=== PATIENT | male | born 1945 | race Caucasian/White ===

== ENCOUNTER 2022-02-14 15:12 | Emergency (ER) | payer MEDICARE, SELFPAY ==
--- NOTE | 2022-02-14 15:17 | ED.URI ---
HPI - URI/Sore Throat General Chief Complaint: Upper Respiratory Infection Stated Complaint: Cough, Mucus Time Seen by Provider: 02/14/22 15:30 Source: patient Mode of arrival: ambulatory Limitations: no limitations History of Present Illness HPI Narrative: Mr. Daniels is a 76-year-old male patient presenting to the clinic today with complaints of cough and congestion x4 weeks. He reports he has yellow nasal drainage and productive cough with yellow phlegm. No fever or chills. He reports that he has a lot of postnasal drip that is keeping him awake at night. MD elicited complaint: cough and nasal congestion Related Data Home Medications Medication Instructions Recorded Confirmed Diclofex DC 02/14/22 Zetia 02/14/22 diltiazem HCl 02/14/22 Allergies Allergy/AdvReac Type Severity Reaction Status Date / Time erythromycin base Allergy Unknown Verified 02/14/22 15:25 Review of Systems Review of Systems: Pertinent positives per HPI. Patient denies any fever, chills, rash, headache, visual changes, dizziness, shortness of breath, chest pain, palpitations, nausea, vomiting, diarrhea, constipation, abdominal pain, or any urinary issues. PMFSH Comments At the time of my signature, I reviewed and agree with the nursing past medical, surgical, social, and family history. There is no relevant family history pertinent to the patient complaint. Exam Narrative: General: Well-developed, well nourished, in no apparent distress Head: Normocephalic, atraumatic Eyes: Pupils equally round and reactive to light bilaterally, EOM intact, sclera and conjunctive clear, no discharge, lids normal Ears: TMs intact and clear, ear canals clear, no drainage, grossly hearing normal. Nose: Nares patent, yellow nasal discharge, moderate inflammation to anterior and posterior turbinates with white striae, sinus tenderness over the maxillary and frontal sinuses. Mouth: Oral pharynx without lesions or masses, good dentition, MMM. Postnasal drip Neck: Supple, trachea midline, no enlargement of anterior or posterior cervical nodes, no thyroid masses or goiter palpable. Cardio: Regular rate and rhythm, s1 and s2 normal, no murmur appreciated. Resp: Clear to auscultation bilaterally, no rhonchi, rales, wheezing or rubs Course Course Emergency Course: Portions of this record may have been created with voice recognition software. Level of Care: Express Care Visit Vital Signs Vital signs: Vital signs reviewed MDM - URI/Sore Throat MDM Narrative Medical decision making narrative: At the time of assessment lung sounds were clear. Does have yellow nasal drainage, sinus tenderness over the maxillary and frontal sinuses, with a postnasal drip. I suspect a bacterial sinus infection as symptoms have been ongoing for 4 weeks. We will treat with a course of Augmentin x10 days. Differential Diagnosis Differential diagnosis: Likely upper respiratory infection, otitis media, sinusitis, viral infection, bronchitis, influenza, pharyngitis and other (Pneumonia) Discharge Plan Discharge Clinical Impression: Sinusitis, acute maxillary Qualifiers: Recurrence: non-recurrent Qualified Code(s): J01.00 - Acute maxillary sinusitis, unspecified Patient Disposition: Home, Self-Care Condition: Stable Instructions: Antibiotic Form, Rhinosinusitis (ED) Additional Instructions: Take prescription medications only as prescribed Augmentin as directed Increase fluids and stay well hydrated Tylenol/motrin for pain/fever Flonase and OTC antihistamines as directed Vicks vapor rub to open sinuses Sinus rinses for congestion Cepacol spray, cough drops, throat lozenges, warm tea with honey/lemon, gargle salt water to soothe throat Go to the ED if you develop dehydration, weakness, lethargy, shortness of breath, or chest pain. Follow up with your PCP in 3-5 days if symptoms persist. Prescriptions: New amoxicillin-pot clavulanate 875-125 mg tab
[2022-02-14 15:25] VITALS: BP 150/67; PULSE 86; RESP 16; TEMP 36.9; O2SAT 99
[2022-02-14 15:26] VITALS: BP 150/67; PULSE 86; RESP 16; TEMP 36.9; O2SAT 99
== END 2022-02-14 15:36 | disposition home or self-care (01) ==
PROVIDERS: Emergency Provider Nurse Practitioner Family; PCP Family Medicine
DX: J01.00 Acute maxillary sinusitis, unspecified (principal); Z95.5 Presence of coronary angioplasty implant and graft
CPT/HCPCS: 99213; G0463

== ENCOUNTER 2022-08-27 14:14 | Emergency (ER) | payer MEDICARE, SELFPAY ==
[2022-08-27 14:28] VITALS: BP 149/80; PULSE 80; RESP 16; TEMP 36.8; O2SAT 99
[2022-08-27 14:30] VITALS: BP 149/80; PULSE 80; RESP 16; TEMP 36.8; O2SAT 99
--- NOTE | 2022-08-27 14:34 | ED.BACK ---
HPI - Back Pain/Injury General Chief Complaint: Back Pain/Injury Stated Complaint: SCIATICA Time Seen by Provider: 08/27/22 14:35 Source: patient, RN notes reviewed and old records reviewed Mode of arrival: ambulatory Limitations: no limitations History of Present Illness HPI Narrative: 76-year-old male presents to the [facility] with complaints of my sciatica is acting up. Patient takes Flexeril on a regular basis. States the muscle relaxer is not helping him. Sometimes has to get steroid packs. Walks with a walker, states it is his normal. Denies any abdominal pain. No loss or retention of bowel or bladder. No midline tenderness. Has an appointment with Ortho on Wednesday Onset (ago): week(s) (1 week) Similar Symptoms Previously: Yes Location: right lower back Radiation: right upper leg Exacerbating factors: movement Related Data Home Medications Medication Instructions Recorded Confirmed cyclosporine 0.05 % eye drops in a 1 drp EACH EYE BID 08/27/22 08/27/22 dropperette (Restasis) diclofenac sodium 50 mg 50 mg PO BID 08/27/22 08/27/22 tablet,delayed release diltiazem HCl 120 mg 120 mg PO DAILY 08/27/22 08/27/22 capsule,extended release 24 hr ezetimibe 10 mg tablet (Zetia) 10 mg PO DAILY 08/27/22 08/27/22 pravastatin 80 mg tablet 80 mg PO DAILY 08/27/22 08/27/22 Allergies Allergy/AdvReac Type Severity Reaction Status Date / Time erythromycin base Allergy Unknown Verified 08/27/22 14:28 Review of Systems Review of Systems: All systems reviewed & are unremarkable except as noted in HPI and below Constitutional: Constitutional: Reports no additional constitutional complaints, Denies chills and Denies fever(s) Eyes: Eyes: Reports no additional eye complaints ENT: Reports system reviewed and no additional complaints, except as documented Cardiovascular: Cardiovascular: Reports no additional cardiovascular complaints Respiratory: Respiratory: Reports no additional respiratory complaints Gastrointestinal: Gastrointestinal: Reports no additional gastrointestinal complaints Musculoskeletal: Musculoskeletal: Reports as per HPI and Reports back pain (Right SI) Integumentary/Breasts: Skin/Breast: Reports system reviewed and no additional complaints, except as docu Neurologic: Reports system reviewed and no additional complaints, except as documented Psychiatric: Psychiatric: Reports no additional psychiatric complaints Allergic/Immunologic: Allergic/Immunologic: Reports no additional allergic/immunologic complaints [facility] Past Medical History Medical History (Updated 08/27/22 @ 17:41 by Jade Beal APRN) High cholesterol Comments At the time of my signature, I reviewed and agree with the nursing past medical, surgical, social, and family history. There is no relevant family history pertinent to the patient complaint. Exam Const: General: healthy appearing, no acute distress and alert Nutritional Appearance: well nourished Orientation/consciousness: patient oriented x3 Limitations: no limitations HENMT: Head: normal to inspection Ears: external ears normal General nose exam: Normal external nose present Face and sinus: normal facial exam Eyes: General: appearance normal, both eyes and all related structures Pupils: Equal, round and reactive pupils present Neck: Neck: normal visual inspection, no lymphadenopathy and no meningeal signs Chest: Chest palpation & inspection: normal inspection of the chest Resp: Effort & Inspection: normal respiratory effort and no use of accessory muscles Auscultation: clear to auscultation bilaterally, no crackles, no rales, no rhonchi and no wheezes Cardio: Rate: regular rate Rhythm: regular rhythm GI: GI Palp: Yes Soft to palpation and No Tenderness to palpation present (GI) Back/Spine/Pelvis: Back: no CVA tenderness, No erythema, No warmth, No sacral edema and No ecchymosis Cervical Spine: normal cervical lordosis, No cervical muscular tenderne
== END 2022-08-27 14:50 | disposition home or self-care (01) ==
PROVIDERS: Emergency Provider Nurse Practitioner; PCP Family Medicine
DX: M54.31 Sciatica, right side (principal); E78.00 Pure hypercholesterolemia, unspecified
CPT/HCPCS: 99213; G0463

== ENCOUNTER 2023-09-21 13:46 | Outpatient (CLI) | payer MEDICARE, SELFPAY ==
[2023-09-21 19:03] LABS: Basophils Absolute Auto 0.1 K/mm3 (0.0-0.1); Basophils Percent Auto 1.1 % (0.2-1.2); Eosinophils Absolute Auto 0.1 K/mm3 (0-0.3); Eosinophils Percent Auto 1.8 % (0-4.4); Hematocrit 42.9 % (42.0-52.0); Hemoglobin 13.2 g/dL (14.0-18.0); Immature Granulocyte Absolute 0.01 K/mm3 (0.00-0.031); Immature Granulocyte Percent A 0.2 % (0-0.5); Lymphocytes Absolute Auto 0.83 K/mm3 (0.9-3.2); Lymphocytes Percent Auto 14.9 % (18.3-44.2); Mean Corpuscular HGB Conc 30.8 g/dl (32-36); Mean Corpuscular Hemoglobin 28.8 pg (26-34); Mean Corpuscular Volume 93.5 fl (80-100); Mean Platelet Volume 9.8 fl (7.4-10.4); Monocytes Absolute Auto 0.7 K/mm3 (0.1-0.6); Monocytes Percent Auto 12.2 % (2.6-8.5); Neutrophils Absolute Auto 3.9 K/mm3 (1.3-6.7); Neutrophils Percent Auto 69.8 % (45.5-73.1); Platelet Count Result 242 k/mm3 (150-375); Red Blood Count 4.59 M/mm3 (4.6-6.20); Red Cell Distribution Width 12.6 % (11.5-14.5); White Blood Count 5.6 K/mm3 (4.5-10.0)
[2023-09-21 19:24] LABS: Alanine Aminotransferase 29 U/L (6-50); Albumin Level 4.2 g/dL (3.5-5.1); Alkaline Phosphatase 69 U/L (38-126); Anion Gap 4 mmol/L (8-16); Aspartate Amino Transferase 39 U/L (17-59); Bilirubin,Total 0.4 mg/dL (0.2-1.3); Blood Urea Nitrogen 17 mg/dL (9-20); Calcium 9.5 mg/dL (8.4-10.2); Carbon Dioxide 31 mmol/L (22-30); Chloride 102 mmol/L (98-107); Estimated Glomerular Filt Rate > 60; Glucose 79 mg/dL (65-110); Potassium 4.4 mmol/L (3.4-5.0); Sodium 137 mmol/L (137-145)
== END 2023-09-21 13:47 | disposition home or self-care (01) ==
LOC: ANHGOSHLAB 13:48
PROVIDERS: PCP Internal Medicine; Visit Provider Clinical Nurse Specialist
DX: I25.10 Atherosclerotic heart disease of native coronary artery without angina pectoris (principal)
CPT/HCPCS: 36415; 80053; 85025

== ENCOUNTER 2023-11-10 08:38 | Outpatient (CLI) | payer MEDICARE, SELFPAY ==
[2023-11-10 12:55] LABS: CRP < 0.5 mg/dL (<1.0)
[2023-11-10 13:07] LABS: Rheumatoid Factor < 12.0 IU/ML (<12)
[2023-11-12 12:05] LABS: ANA Cascade Screen Negative (Negative)
== END 2023-11-10 08:39 | disposition home or self-care (01) ==
LOC: ANHGOSHLAB 08:40
PROVIDERS: PCP Internal Medicine; Visit Provider Clinical Nurse Specialist
DX: M79.10 Myalgia, unspecified site (principal)
CPT/HCPCS: 36415; 86038; 86140; 86225; 86235; 86364; 86430

== ENCOUNTER → 2023-11-10 08:53 | Outpatient (CLI) | payer MEDICARE, SELFPAY ==
--- NOTE | ~2023-11-10 | XR_ITS ---
EXAMINATION: [id number] DATE: 11/10/2023 09:28 INDICATION: Right foot pain. TECHNIQUE: 3 views of right foot standing were obtained. COMPARISON: None. FINDINGS: Bone alignment is normal. No fracture. There is severe osteoarthritis of first metatarsopha langeal joint and mild osteoarthritis of some of the interphalangeal joints. There is an enthesophyte at plantar aspect of calcaneal tuberosity. Vascular calcifications are noted. IMPRESSION: 1. Polyarticular osteoarthritis. Reviewed, dictated and finalized at location A. [facility]
== END ==
PROVIDERS: PCP Clinical Nurse Specialist; Visit Provider Clinical Nurse Specialist
DX: M19.071 Primary osteoarthritis, right ankle and foot (principal); M79.671 Pain in right foot
CPT/HCPCS: 73630

== ENCOUNTER 2024-08-14 14:45 | Outpatient (RCR) | payer MEDICARE, SELFPAY ==
--- NOTE | 2024-06-19 14:41 | OPREHPOC ---
Outpatient Therapy Plan of Care This is a Multidisciplinary Plan of Care that may contain components documented by all disciplines (PT, OT, and ST.) PT Problem 1 PT Problem #1 Knowledge Deficit PT Goal 1 Goal Pt to be IND with issued HEP Target Visit 10 PT Problem 2 PT Problem #2 Pain PT Goal 1 Goal Pt to report knee pain no greater then 3/10 in the last week. Target Visit 10 PT Problem 3 PT Problem #3 Impaired Range of Motion PT Goal 1 Goal Pt to improve passive knee extension to -3 deg teto . Target Visit 10 PT Goal 2 Goal Pt to improve passive knee flexion ROM to 115 deg teto. Target Visit 10 PT Problem 4 PT Problem #4 Impaired Strength PT Goal 1 Goal Pt to demonstrate a functional lift and carry with 20lb. Target Visit 10 PT Goal 2 Goal Pt to lack no more than 10 deg from terminal knee extension in short sitting.
--- NOTE | 2024-06-19 14:41 | PTOPEVAL1 ---
Assessment and note entered by Sanya Benavidez, PT, DPT Evaluation Information Assessment Status Evaluation Diagnosis L RKA ICD-10 Condition Codes (PT) Pain in left knee M25.562,Difficulty Walking R26.2 ,R26.9,Weakness R53.1 Subjective Information Pt reports he has a L RKA on 05/18/24. Pt completed 4 weeks of PT. He states he is doing well. Pt reports difficulty walking long distances and navigating stairs. He states he cannot sleep through the night because his knee becomes very stiff. He reports an increased time completing daily tasks. Prior to his surgery, pt enjoyed playing [employer]. Reported Pain Level Pain Score 2: Self Report Assessment PT Clinical Summary Alex presents to therapy today for his initial evaluation following a L TKA on 05/18/24. Today he demonstrates significantly decreased active and passive knee extension, he also is lacking end range knee flexion. He demonstrates decreased functional mobility and decreased strength and ROM consistent with his surgery. He will benefits from skilled therapy services to address the deficits noted above. Plan of Care Interventions Electrical Stimulation,Gait Training,Hot Pack/Cold Pack,Intermittent Compression,Manual Therapy, Neuro Re-education,Patient/Caregiver Educati, Therapeutic Activities,Therapeutic Exercise PT Services Indicated Yes Treatment Frequency and 2x/wk for 10 visits Duration These treatments will address the objective and functional deficits as defined above. The patient will be advanced safely and appropriately in order for the patient to progress towards his/her prior level of function. Additional exercises will be introduced and as well as a comprehensive home exercise program upon discharge, if needed, ?to ensure carryover of functional gains achieved in the clinic. This treatment plan has been reviewed and agreement upon by the patient.
--- NOTE | 2024-07-20 16:25 | PTOPPROG ---
Assessment and note entered by Sanya Benavidez, PT, DPT Evaluation Information Assessment Status Progress Diagnosis L RKA ICD-10 Condition Codes (PT) Pain in left knee M25.562,Difficulty Walking R26.2 ,R26.9,Weakness R53.1 Subjective Information Pt reports he has a L RKA on 05/18/24. Pt completed 4 weeks of PT. He states he is doing well. Pt reports difficulty walking long distances and navigating stairs. He states he cannot sleep through the night because his knee becomes very stiff. He reports an increased time completing daily tasks. Prior to his surgery, pt enjoyed playing [email or web address]. Assessment PT Clinical Summary Pt has completed 10 visits of skilled therapy following a L TKA. Today he demonstrates good strength and functional mobility, he reports stairs are the only thing he struggles with day to day. His ROM has improved but he continues to lack end range flexion and extension. He is progressing well towards his therapy goals. Continuation of skilled therapy services are indicated to continue to improve ROM, to improve stair navigation, and to return to PLOF including pickle ball. Plan of Care Interventions Electrical Stimulation,Gait Training,Hot Pack/Cold Pack,Intermittent Compression,Manual Therapy, Neuro Re-education,Patient/Caregiver Educati, Therapeutic Activities,Therapeutic Exercise PT Services Indicated Yes Treatment Frequency and 1x/wk for 4 visits Duration These treatments will address the objective and functional deficits as defined above. The patient will be advanced safely and appropriately in order for the patient to progress towards his/her prior level of function. Additional exercises will be introduced and as well as a comprehensive home exercise program upon discharge, if needed, ?to ensure carryover of functional gains achieved in the clinic. This treatment plan has been reviewed and agreement upon by the patient.
--- NOTE | 2024-07-25 15:23 | PCPTNOTE ---
Patient arrived to treatment this date but had to leave due to emergency. Patient was rescheduled for 07/26/24.
--- NOTE | 2024-08-14 15:25 | PTOPDC ---
Assessment and note entered by Sanya Benavidez, PT, DPT Evaluation Information Assessment Status dishcarge Diagnosis L RKA ICD-10 Condition Codes (PT) Pain in left knee M25.562,Difficulty Walking R26.2 ,R26.9,Weakness R53.1 Subjective Information Pt states his knee is doing great. He reports he has been stretching his knee daily and it feels like it has improved a lot. He reports an increase in low back popping since his knee surgery. Reported Pain Level Pain Score 0: Self Report Assessment PT Clinical Summary Pt has completed 15 visits of skilled therapy following a L TKA. Today he demonstrates great strength and functional mobility. His ROM has improved but he continues to lack end range flexion and extension. He has active flexion to 105 deg teto and is lacking ~5 deg of extension teto . Pt given extensive education on the importance of continued knee mobility upon discharge. He no longer requires skilled services and will be d/c' ed at this time. Plan of Care PT Services Indicated No
== END 2024-08-14 15:58 | disposition home or self-care (01) ==
LOC: ANHGOSHPT 14:45
PROVIDERS: PCP Clinical Nurse Specialist
DX: Z96.652 Presence of left artificial knee joint (principal)
CPT/HCPCS: 97016; 97110; 97140; 97161; 97530

== ENCOUNTER 2024-10-05 11:12 | Outpatient (CLI) | payer MEDICARE, SELFPAY ==
[2024-10-05 19:04] LABS: Basophils Absolute Auto 0.1 K/mm3 (0.0-0.1); Eosinophils Absolute Auto 0.1 K/mm3 (0-0.3); Eosinophils Percent Auto 2.7 % (0-4.4); Hematocrit 43.2 % (42.0-52.0); Immature Granulocyte Absolute 0.01 K/mm3 (0.00-0.031); Immature Granulocyte Percent A 0.2 % (0-0.5); Lymphocytes Absolute Auto 0.89 K/mm3 (0.9-3.2); Lymphocytes Percent Auto 18.5 % (18.3-44.2); Mean Corpuscular HGB Conc 30.1 g/dl (32-36); Mean Corpuscular Hemoglobin 25.6 pg (26-34); Mean Corpuscular Volume 85.2 fl (80-100); Monocytes Absolute Auto 0.6 K/mm3 (0.1-0.6); Monocytes Percent Auto 12.1 % (2.6-8.5); Neutrophils Absolute Auto 3.2 K/mm3 (1.3-6.7); Neutrophils Percent Auto 65.5 % (45.5-73.1); Platelet Count Result 234 k/mm3 (150-375); Red Blood Count 5.07 M/mm3 (4.6-6.20); Red Cell Distribution Width 14.9 % (11.5-14.5); White Blood Count 4.8 K/mm3 (4.5-10.0)
[2024-10-05 19:07] LABS: Alanine Aminotransferase 26 U/L (6-50); Albumin Level 4.2 g/dL (3.5-5.1); Alkaline Phosphatase 90 U/L (38-126); Anion Gap 9 mmol/L (4-12); Aspartate Amino Transferase 35 U/L (17-59); Bilirubin,Total 0.4 mg/dL (0.2-1.3); Blood Urea Nitrogen 16 mg/dL (9-20); Calcium 9.7 mg/dL (8.4-10.2); Carbon Dioxide 30 mmol/L (22-30); Chloride 102 mmol/L (98-107); Cholesterol 141 mg/dL (0-200); Estimated Glomerular Filt Rate > 60; Glucose 87 mg/dL (65-110); HDL Direct 51 mg/dL; Potassium 4.8 mmol/L (3.4-5.0); Sodium 141 mmol/L (137-145); Triglycerides 83 mg/dL (<150)
[2024-10-05 19:17] LABS: LDL Cholesterol Direct 71 mg/dL
[2024-10-05 20:11] LABS: Folic Acid > 20.0 ng/mL (2.76->20)
== END 2024-10-05 11:13 | disposition home or self-care (01) ==
LOC: ANHGOSHLAB 11:15
PROVIDERS: PCP Clinical Nurse Specialist; Visit Provider Clinical Nurse Specialist
DX: E78.5 Hyperlipidemia, unspecified (principal); I25.10 Atherosclerotic heart disease of native coronary artery without angina pectoris; M79.10 Myalgia, unspecified site; R53.83 Other fatigue; D64.9 Anemia, unspecified
CPT/HCPCS: 36415; 80053; 80061; 82607; 82746; 84402; 84403; 84443; 85025

== ENCOUNTER 2024-10-13 13:56 | Outpatient (CLI) | payer MEDICARE, SELFPAY ==
[2024-10-13 18:03] LABS: Basophils Absolute Auto 0.1 K/mm3 (0.0-0.1); Basophils Percent Auto 0.9 % (0.2-1.2); Eosinophils Absolute Auto 0.1 K/mm3 (0-0.3); Eosinophils Percent Auto 1.5 % (0-4.4); Hemoglobin 13.4 g/dL (14.0-18.0); Immature Granulocyte Absolute 0.01 K/mm3 (0.00-0.031); Immature Granulocyte Percent A 0.2 % (0-0.5); Lymphocytes Absolute Auto 0.96 K/mm3 (0.9-3.2); Lymphocytes Percent Auto 14.6 % (18.3-44.2); Mean Corpuscular HGB Conc 29.8 g/dl (32-36); Mean Corpuscular Hemoglobin 25.5 pg (26-34); Mean Corpuscular Volume 85.7 fl (80-100); Mean Platelet Volume 9.9 fl (7.4-10.4); Monocytes Absolute Auto 0.6 K/mm3 (0.1-0.6); Monocytes Percent Auto 9.1 % (2.6-8.5); Neutrophils Absolute Auto 4.9 K/mm3 (1.3-6.7); Neutrophils Percent Auto 73.7 % (45.5-73.1); Platelet Count Result 258 k/mm3 (150-375); Red Blood Count 5.25 M/mm3 (4.6-6.20); Red Cell Distribution Width 14.9 % (11.5-14.5); White Blood Count 6.6 K/mm3 (4.5-10.0)
[2024-10-13 18:30] LABS: Free T4 Free Thyroxine 0.81 ng/mL (0.78-2.19)
[2024-10-13 18:48] LABS: Ferritin 7.42 ng/mL (11.1-264)
== END 2024-10-13 13:57 | disposition home or self-care (01) ==
PROVIDERS: PCP Clinical Nurse Specialist; Visit Provider Clinical Nurse Specialist
DX: R53.83 Other fatigue (principal); D64.9 Anemia, unspecified; R79.89 Other specified abnormal findings of blood chemistry; Z12.11 Encounter for screening for malignant neoplasm of colon; Z12.12 Encounter for screening for malignant neoplasm of rectum
CPT/HCPCS: 36415; 82728; 84439; 84443; 85025

== ENCOUNTER 2024-12-27 03:23 | Day surgery (SDC) | payer MEDICARE, SELFPAY ==
[2024-12-14 15:11] VITALS: BMI 25.9
--- OUTSIDE RECORDS SUMMARY | 2024-12-27 03:27 | XMS_ITS | Encounter Summary ---
Author Organization [facility] Facility Care Team Providers Care Wine Merchant Name Role Phone Woody Wu MD Primary Care Provider [phone] Marquita Valentino LPN Unavailable [phone] Aj López MD Unavailable [phone] No, Physician Primary Care Provider [phone] oWody Fry DO Primary Care Provider [phone] Deidre Lomeli Unavailable [phone] Encounter Details Date Type Department Care Team (Latest Contact Info) Description 07/11/2018 Orders Only [facility] ProviderAyaz MD [address] [place] [id number] Social History Tobacco Use Types Packs/Day Years Used Date Smoking Tobacco: Never Smokeless Tobacco: Never Alcohol Use Standard Drinks/Week Comments Yes 0 (1 standard drink = 0.6 oz pur e alcohol) Sex and Gender Information Value Date Recorded Sex Assigned at Not on file Legal Sex Male 3:45 PM [employer] Gender Identity Not on file Sexual Orientation Not on file documented as of this encounter Plan of Treatment Not on file documented as of this encounter Procedures Procedure Name Priority Date/Time Associated Diagnosis Comments SCAN - LABS 07/11/2018 12:00 AM CDT documented in this encounter Results * SCAN - LABS (07/11/2018 12:00 AM CDT) Narrative 07/11/2018 12:00 AM CDT Ordered by an unspecified provider. us Historical Provider Final Res ult documented in this encounter Visit Diagnoses Not on filedocumented in this encounter Care Teams Wine Merchant Relationship Specialty Start Date End Date Woody Wu MD PCP - General 02/26/17 04/18/24 No, Physician PCP - General 04/20/24 05/01/24 Woody Fry DO PCP - General Internal Medicine 05/02/24 Marquita Valentino LPN Bus Analyst 11/01/19 11/01/19 Aj López MD [address] [facility] [address] [place] [address] Consulting Physician Interventional Cardiology 04/19/24 Deidre Lomeli PA [address] [facility] [address] [place] [address] [place] [id number] Orthopedic Surgery 05/18/24 documented as of this encounter
--- OUTSIDE RECORDS SUMMARY | 2024-12-27 03:27 | XMS_ITS | Patient Health Summary ---
Author Organization [facility] Address [address] [place] [address] Care Team Providers Care Auto Winder Name Role Phone Unavailable Primary Care Provider Unavailabl e Note from [facility],non-owned Affiliates and Associated Physician Practices is amultiple site organization consisting of ambulatory clinics and hospital sitesin [place], [place], [place] and [place]. This disclosure is being madepursuant to the Care Everywhere program and may not contain all information available regarding this patient. Last updated 18.[facility] Allergies * Erythromycin(Nausea and/or Vomiting) Medications * Be aware that medications may not be up to date on this document. Alwaysverify current medications with the patient. * diclofenac sodium EC (VOLTAREN) 50 MG tablet(Started 01/16/2021) Take 50 mg by mouth * pravastatin (PRAVACHOL) 80 MG tablet(Started 06/10/2020) Take 1 tablet by mouth once daily * ezetimibe (ZETIA) 10 MG tablet(Started 11/11/2020) Take 1 tablet by mouth once daily * dilTIAZem ER 24hr (TIAZAC) 120 MG capsule(Started 02/09/2020) Take 1 capsule by mouth once daily * Flaxseed, Linseed, (FLAX SEED OIL) 1000 MG Take 1,000 mg by mouth once daily * zinc gluconate 50 MG tablet Take 50 mg by mouth once daily * sodium hyaluronate (HEALON) 10 MG/ML intraocular solution * Vrradf-Hemvwtflp-Aojoyo-Hyal (GLUCOSAMINE CHONDROIT-COLLAGEN) CAPS Take 1 tablet by mouth 2 times daily * Cholecalciferol (VITAMIN D-[address]) 25 MCG (1000 UT) Take 1 tablet by mouth once daily * Multiple Vitamin (MULTIVITAMIN ADULT PO) Take 1 tablet by mouth once daily * LYSINE PO Take 1 tablet by mouth once daily * traMADol (ULTRAM) 50 MG tablet(Started 07/15/2021) Take 1 (one) tablet by mouth every 6 hours as needed for Pain * sennosides (SENOKOT) 8.6 MG tablet(Started 07/23/2021) Take 8.6 mg by mouth once daily * oxyCODONE, immediate release, (ROXICODONE) 5 MG tablet(Started 07/23/2021) Take 5 mg by mouth every 4 hours as needed * meloxicam (MOBIC) 7.5 MG tablet(Started 07/23/2021) Take 7.5 mg by mouth 2 times daily * acetaminophen (TYLENOL) 500 MG tablet(Started 07/23/2021) Take 500 mg by mouth 4 times daily * Polyethylene Glycol 400 0.25 % 1 drop by Ophthalmic route every 24 hours as needed * Restasis 0.05 % ophthalmic suspension(Started 04/24/2022) INSTILL ONE DROP INTO EACH EYE TWICE DAILY * diclofenac sodium EC (Voltaren) 50 MG tablet(Started 08/20/2022) Take 50 mg by mouth 2 times daily as needed * dilTIAZem coated beads 24hr (Cardizem CD) 120 MG capsule(Started 08/19/2022) Active Problems Problem Noted Date Diagnosed Date 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 Staging:Clinical:Stage 0(cTis, cN0, cM0) - Unsigned Pathologic stage from 12/31/2021:Stage 0(pTis, cN0, cM0) - Signed by Ryan Melendez MD on 12/31/2021 Social History Tobacco Use Types Packs/Day Years Used Date Smoking Tobacco: Never Smokeless Tobacco: Never Alcohol Use Standard Drinks/Week Comments Yes 3 (1 standard drink = 0.6 oz pur e alcohol) Sex and Gender Information Value Date Recorded Sex Assigned at Not on file Gender Identity Not on file Sexual Orientation Not on file Last Filed Vital Signs Vital Sign Reading Time Taken Comments Blood Pressure 134/83 08/31/2022 2:01 PM CDT Pulse 81 08/31/2022 2:01 PM CDT Temperature 36.3 ??C (97.4 ??F) 08/31/2022 2:01 PM CD T Respiratory Rate 18 08/31/2022 2:01 PM CDT Oxygen Saturation 96% 08/31/2022 2:01 PM CDT Inhaled Oxygen Concentration - - Weight 70.8 kg (156 lb) 08/31/2022 2:01 PM CDT Height 170.2 cm (5' 7 ) 08/31/2022 2:01 PM CDT Body Mass Index 24.43 08/31/2022 2:01 PM CDT Procedures * PATHOLOGY TISSUE(Performed 07/15/2021) Performed for Melanoma in situ of neck (HCC) * EXCISION MASS OR TUMOR HEAD/NECK/SCALP(Performed 07/15/2021) Performed for Melanoma in situ of neck (HCC) * DERMATOPATHOLOGY(Performed 06/25/2021) Results * PATHOLOGY TISSUE (07/15/2021 12:23 PM CDT) Case Report Surgical Pathology Report ? Case: [id number] ? Authorizing Provider: ??Ryan Melendez MD ?Collected: ? 07/15/2021 12:23 PM ? Ordering Location: ? [facility] ?Received: ?07/15/2021 02:10 PM ? Pathologist: ? Nessa Perez MD ? Specimens: ?? A) - Skin, Right neck melanoma stitch as 1200 ? B) - Margin, right neck anterior margin ? C) - Margin, right neck posterior margin ? 07/18/2021 12:11 PM [facility] Final Diagnosis Skin, right neck, wide resection (A): - Dermal scar, negative for residual melanoma Skin, right neck anterior margin, resection (B): - Benign skin Skin, right neck posterior margin, resection (C): - Benign skin 07/18/2021 12:11 PM [facility] Microscopic Description and Comment Microscopic examination substantiates the diagnosis. 07/18/2021 12:11 PM [facility] Clinical History The patient is a 75 year oldcbk-ojhl-dwl male with history of a pigmented lesion on the right neck. Biopsy revealed a melanoma in situ. The biopsy scar measures 1.2 cm in diameter. The patient is recommended to undergo wide excision with 1 cm margins. 07/18/2021 12:11 PM [facility] Gross Description The requisition and specimen(s) are identified with the patient's name, Alex Daniels. Received in formalin, specimen A is a 3.2 x 2.5 x 1.3 cm dickinson, wrinkled, oval skin fragment. The specimen is inked as follows: 99-8-4-green, 6-9-12-blue, deep margin-black. Dragoon-dickinson scar is present, centrally measuring 0.6-6 0.5 cm located 1.1 cm from 12:00, 1 cm from 3:00, 1.7 cm from 6:00, 1.2 cm from 9:00 margins. Sectioning shows grossly unremarkable fibrofatty cut surfaces. Entirely submitted sequentially from 12-6 margin in cassette A1-A6 (12:00 tip in A1, 6:00 tip in A6). Received in formalin, specimen B is a 1.5 x 1.3 x 1 cm triangular dickinson, wrinkled skin fragment. Sectioning shows no lesions on skin and cut surfaces. A high school admissions representative central section is submitted in cassette B1. Received in formalin, specimen C is a triangular dickinson to pink-dickinson, wrinkled skin fragment, 1.8 x 1.7 x 1.5 cm. The margin is inked black, and the specimen is sectioned showing hemorrhagic cut surfaces. Pocket Cutter central section is submitted in cassette C1. LJ 07/18/2021 12:11 PM CDT [facility] Disclaimer The performance characteristics of all immunohistochemical and indirect immunofluorescence stains (if any) cited in this report were determined by the Histopathology Laboratory of [facility]. Some of these tests were developed by our own laboratory and have not been cleared or approved by the [place] Food and Drug Administration. The FDA does not require this test to go through premarket FDA review. These tests are used for clinical purposes. They should not be regarded as investigational or for research. This laboratory is certified under the Clinical Laboratory Improvement Amendments (CLIA) as qualified to perform high complexity clinical laboratory testing. This case has been personally reviewed and interpreted by the attending (teaching) pathologist. 07/18/2021 12:11 PM CDT [facility] Embedded Images 07/18/2021 12:11 PM CDT [facility] Biopsy, Excision TISSUE SPECIMEN FROM SKIN / Unknown 07/15/2021 12:23 PM CDT 07/15/2021 2:10 PM CDT Comment:Pre-op diagnosis: MELANOMA IN SITU RIGHT NECK Biopsy, Excision (Margin) 07/15/2021 12:25 PM CDT 07/15/2021 2:10 PM CDT Comment:Pre-op diagnosis: MELANOMA IN SITU RIGHT NECK Biopsy, Excision (Margin) 07/15/2021 12:25 PM CDT 07/15/2021 2:10 PM CDT Comment:Pre-op diagnosis: MELANOMA IN SITU RIGHT NECK Ryan Melendez MD LAB - PATHOLOGY/CYTO LOGY ORDERABLES [facility] [address] [place], [place] [address] [phone] * DERMATOPATHOLOGY (06/25/2021 12:00 AM CDT) Case Report Dermatopathology Report ? Case: [id number] ? Authorizing Provider: ??Alex Mercedes MD ?Collected: ? 06/25/2021 12:00 AM ? Ordering Location: ? [facility] ?Received: ?06/27/2021 09:38 AM ? Pathologist: ? Luzmaria Zavala MD ? Specimen: ?Skin, right post neck ? 6:42 PM CDT DERMATOPATHOLOGY LABORATORY Final Diagnosis Specimen A. SKIN, right post neck: MELANOMA IN SITU, LENTIGINOUS TYPE (D03.4) PRESENT AT MARGIN (see microscopic description) 6:42 PM CDT DERMATOPATHOLOGY LABORATORY Clinical History Macule R/O MM 6:42 PM CDT DERMATOPATHOLOGY LABORATORY Gross Description Specimen A: Received is one formalin filled container labeled with the patient's name and designated right post neck. The specimen consists of a shave biopsy measuring 11x7x2 mm. Jar 0. 1 6:42 PM T DERMATOPATHOLOGY LABORATORY Microscopic Description Specimen A. SKIN, right post neck: There is a proliferation of melanocytes distributed in an irregular pattern along the dermal-epidermal junction with single cells predominating, highlighted by MART-1/Melan-A immunostain. Extension down the follicular epithelium and focal areas of confluence are present. Features consistent with regression are present. This lesion is present at the margin of the specimen. Additional deeper sections were obtained and reviewed. 1 6:42 PM CDT DERMATOPATHOLOGY LABORATORY Disclaimer An external and internal positive and negative controls are appropriate for the histochemical, immunohistochemical and immunofluorescence stain(s) in this case (if any), except where stated explicitly. The performance characteristics of the stain(s) cited in this report were developed and its performance characteristic determined by the Dermatopathology Laboratory at [facility], directed by Dr. Rach Grissom. These tests need not be, and therefore are not, approved by the [place] Food and Drug Administration. The tests are used for clinical purposes. Billing Codes Specimen Charges Stain Charges 72929 1 75746 1 1 6:42 PM CDT DERMATOPATHOLOGY LABORATORY Embedded Images 1 6:42 PM CDT DERMATOPATHOLOGY LABORATORY Pathology/Cytolog y TISSUE SPECIMEN FROM SKIN / Unknown 06/25/2021 06/27/2021 9:38 AM CDT Alex Mercedes MD LAB - PATHOLOGY/CYTO LOGY ORDERABLES DERMATOPATHOLOGY LABORATORY [facility] - Department of Dermatology [address], [address] [phone]
--- OUTSIDE RECORDS SUMMARY | 2024-12-27 03:27 | XMS_ITS | Referral Summary ---
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); Chronic bilateral low back pain without sciatica; Lumbar facet arthropathy-multilevel , severe L5-S1; Spinal stenosis, lumbar region, severe L3-L4, moderate/severe L4-L5, without neurogenic claudication; 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 10/02/2024 10:49 AM CAR REPOSSESSOR - 10/02/2024 11:59 PM CAR REPOSSESSOR Hospital Encounter [facility] Diag Imaging [address] [place] [id number] S/P TKR (total knee replacement) using cement, left Discharge Disposition: Discharge to home or self care 10/02/2024 10:45 AM CAR REPOSSESSOR Office Visit [facility] Orthopedics and Sports Medicine [address] [place] [address] [address] [place] [address] Kike Centeno DO S/P TKR (total knee replacement) using cement, left (Primary Dx) from Last 3 Months Allergies Active Allergy Reactions Criticality Noted Date Comments Erythromycin Stomach upset,Nausea And Vomiting Low 07/07/2021 Patient states upset stomach. Medications ascorbic acid, vitamin C, (VITAMIN C) 500 mg capsule, extended release CR capsule take 1 tablet by mouth once daily 0 0 5 Active cycloSPORINE (RESTASIS) 0.05 % ophthalmic emulsion Administer 1 drop into both eyes 2 (two) times a day Active oxyCODONE (ROXICODONE) 5 mg immediate release tabletIndication s:Pain Take 1 tablet (5 mg total) by mouth every 4 (four) hours as needed for pain 30 tablet 4 Active Additional Information Patient not taking.Reported on 10/18/2024 apixaban (ELIQUIS) 2.5 mg tabletIndication s:VTE Prophylaxis Following Ortho Surgery Take 1 tablet (2.5 mg total) by mouth 2 (two) times a day 28 tablet 4 Active dilTIAZem CD/XR/XT (Cartia XT) 120 mg 24 hr capsule TAKE 1 CAPSULE BY MOUTH EVERY DAY 90 capsule 3 4 Active pravastatin (PRAVACHOL) 80 mg tablet Take 1 tablet (80 mg total) by mouth daily 90 tablet 3 4 Active ezetimibe (ZETIA) 10 mg tablet TAKE 1 TABLET BY MOUTH EVERY DAY 30 tablet 6 4 Active Active Problems Problem Noted Date Diagnosed Date S/P TKR (total knee replacement) using cement, l eft 05/18/2024 Assessment & Plan (05/31/2024 1:49 PM CDT): Patient is doing well overall. X-rays were reviewed with the patient today in clinic and demonstrate hardware in good alignment without apparent complication. Patient will begin outpatient physical therapy - he was given a PT script today to bring into [place] outpatient physical therapy as we are unable to send it electronically. No evidence of infection of the surgical site. Patient will continue to keep the surgical site clean and dry for 2 more weeks and then may start getting it wet in the shower. Signs of infection were reviewed with the patient including increased swelling and erythema along the surgical site, purulent drainage from the surgical site, fever, chills and they will notify us they develop any of these signs. He will follow up in 4 weeks for x-rays and further evaluation with Dr. Centeno. Expressed understanding and agreement with the plan. Assessment & Plan (05/24/2024 2:55 PM CDT): Patient is doing well overall. He will continue home health physical therapy. No evidence of infection of the surgical site. Patient will continue to keep the surgical site clean and dry for 3 more weeks and then may start getting it wet in the shower. Signs of infection were reviewed with the patient including increased swelling and erythema along the surgical site, purulent drainage from the surgical site, fever, chills and they will notify us they develop any of these signs. He will follow up in 1 week for x-rays and further evaluation with me. Expressed understanding and agreement with the plan. Medicare annual wellness visit, subsequent 06/09 Acute bilateral low back pain with right-sided s ciatica 10/20/2021 History of knee replacement, total, right 2020 Calcification of artery 10/20/2021 Melanoma in situ of neck 07/07/2021 OA right shoulder-moderate AC joint 07/14/2019 Impingement syndrome of right shoulder 9 BPH (benign prostatic hyperplasia) 12/02/2016 HTN (hypertension) 05/20/2016 Assessment & Plan (05/03/2023 10:15 AM CDT): Adequately controlled continue diltiazem 120 Assessment & Plan (04/10/2022 1:01 PM CDT): His BP remains at goal; Continue the diltiazem Assessment & Plan (09/26/2021 1:18 PM CDT): His BP is at goal Assessment & Plan (04/15/2021 10:34 AM CDT): His BP is at goal Assessment & Plan (04/10/2020 12:50 PM CDT): His BP is at goal Osteoarthritis 05/20/2016 Hyperlipidemia 06/13/2013 Overview (11/09/2019): HYPERLIPIDEMIA NEC/NOS Assessment & Plan (04/10/2022 1:07 PM CDT): TC 144/ HDL 60 /TG 95/ LDL 65 He is at goal continue the pravachol 80 Assessment & Plan (09/26/2021 1:17 PM CDT): HDL 54/ LDL 55 He is at goal on the pravachol 80 Assessment & Plan (04/15/2021 10:38 AM CDT): LDL 55 at goal on zetia and pravachol 80 mg Assessment & Plan (04/10/2020 12:49 PM CDT): SCRIBED Cholesterol, Total l - h 130 SCRIBED HDL l - h 47 SCRIBED LDL l - h 50 SCRIBED Triglycerides l - h 165 He is at goal on pravachol and zetia Assessment & Plan (10/04/2019 1:26 PM CAR REPOSSESSOR): His lipid profile today demonstrates a cholesterol of 130, HDL 47, triglyceride 165 and LDL 50. He is at goal Pravachol 80 mg with the Co Q10 Assessment & Plan (04/05/2019 1:25 PM CDT): CHOLESTEROL, TOTAL <200 mg/dL 152 HDL CHOLESTEROL >40 mg/dL 62 TRIGLYCERIDES <150 mg/dL 82 LDL-CHOLESTEROL mg/dL (calc) 74 He is on the 80 mg pravachol and at goal Assessment & Plan (10/05/2018 2:30 PM CAR REPOSSESSOR): . SCRIBED Cholesterol, Total l - h 172 SCRIBED HDL l - h 54 SCRIBED LDL l - h 99 SCRIBED Triglycerides l - h 90 He is at goal on 80 mg Pravachol and zetia 10 mg daily Assessment & Plan (03/16/2018 10:56 AM CDT): His lipid profile today demonstrates a cholesterol of 172, HDL 54, triglyceride 90, LDL 99. He is on Pravachol 80 mg a day and at goal Assessment & Plan (06/29/2017 11:33 AM CDT): SCRIBED Cholesterol, Total l - h 136 SCRIBED HDL l - h 53 SCRIBED LDL l - h 62 SCRIBED Triglycerides l - h 106 March 2017 On Pravachol 80 mg daily and zetia and at goal Atherosclerosis of coronary artery bypass graft 06/13/2013 Overview (03/04/2017): ZOEY KENDALL Assessment & Plan (03/16/2018 10:55 AM CDT): He remains stable Assessment & Plan (06/28/2017 5:12 PM CDT): Conclusions 1. No diagnostic ST changes. 2. Global left ventricular function is normal. Left Ventricular Ejection Fraction is 66 %. 3. Normal perfusion imaging. No definite fixed or reversible defects. 4. Negative myocardial perfusion imaging without infarct or ischemia.. Coronary artery disease of n ative artery of [place] heart with stable angina pectoris 06/13/2013 Overview (11/09/2019): CAD, [place] Vessel Assessment & Plan (05/03/2023 10:14 AM CDT): Screening remote bypass 2005, increasing exertional intolerance since his last appointment investigate for possible anginal equivalent - continue aspirin, statin and Zetia - check Lexiscan MPI and echo Assessment & Plan (04/10/2022 1:02 PM CDT): 1. Negative Pharmacologic Stress Myocardial Perfusion Imaging without ischemia or infarct. Heart rate increase is not required for adequate pharmacologic vasodilator stress. 2. Normal Gated Spect study with EF of 60% He remains asymptomatic so I made no changes continue the ASA diltiazem Assessment & Plan (09/26/2021 1:15 PM CDT): He had a nuclear stress test in April and it was normal; He has no sx and doing well. Assessment & Plan (04/15/2021 10:37 AM CDT): He remains stable so I made no changes but he will need a lexiscan nuclear prior to the knee surgery Assessment & Plan (04/10/2020 12:55 PM CDT): He remains asymptomatic; last stress test in 2014 negative Assessment & Plan (10/04/2019 1:30 PM CAR REPOSSESSOR): He remains asymptomatic so I made no changes. Alex is almost 15 years out since his cardiac procedure which was a 4 vessel bypass with a right and left LEANNE and 2 vein grafts. He remains asymptomatic. Since has been almost 15 years we had a long discussion about the pros and cons of stress test or other interventions and agreed that since he is asymptomatic we will continue to observe him at present. He knows that if any symptoms change or anything happens we canthen obtain a stress test if needed Assessment & Plan (04/05/2019 1:23 PM CDT): He remains asymptomatic so I will continue to observe; He may be due for a stress test in a year or so for follow up Assessment & Plan (10/05/2018 2:26 PM CAR REPOSSESSOR): 1.No diagnostic ST changes. 2.Global left ventricular function is normal. Left Ventricular Ejection Fraction is 66 %. 3.Normal perfusion imaging. No definite fixed or reversible defects. 4.Negative myocardial perfusion imaging without infarct or ischemia. 2014; He is doing well, so I made no changes Assessment & Plan (03/16/2018 10:55 AM CDT): Sep 2015=1.No diagnostic ST changes. 2.Global left ventricular function is normal. Left Ventricular Ejection Fraction is 66 %. 3.Normal perfusion imaging. No definite fixed or reversible defects. 4.Negative myocardial perfusion imaging without infarct or ischemia. Since he is asymptomatic I made no changes Assessment & Plan (06/29/2017 11:26 AM CDT): His last stress test was 09/2015 and negative, so I made no changes Resolved Problems Problem Noted Date Diagnosed Date Resolved Date Arthritis of knee, left 05/18/202404/30 Immunizations Name Administration Dates Next Due Influenza Virus Vaccine Trivalent Mdv 10/17/2012 Influenza, Quadrivalent, Hig h Dose, Preservative Free, Intrr 09/10/2021 Influenza, Trivalent, High D ose, Split, Preservative Free, Intramuscular 09/21/2018 Influenza, Trivalent, IM (MDV) 10/17/2012 Influenza, Unspecified 08/29/2022,08/29/2021 Pneumococcal Polysaccharide PPV23 04/08/2012 Social History Tobacco Use Types Packs/Day Years Used Date Smoking Tobacco: Never Smokeless Tobacco: Never Tobacco Cessation:Counseling Given: Not Answered Alcohol Use Standard Drinks/Week Comments Yes 0 (1 standard drink = 0.6 oz pur e alcohol) [facility] Intellitacticsities Answer Date Recorded In the past 12 months has [employer], [employer], oil, or water [employer] threatened to shut off services in your home? No 05/18/2024 Social Connection and Isolat ion Panel [NHANES] Answer Date Recorded In a typical week, how many times do you talk on the phone with family, friends, or neighbors? More than three times a week 05/18/2024 How often do you get togethe r with friends or relatives? More than three times a week 05/18/2024 How often do you attend chur or samaritan services? Never 05/18/2024 Do you belong to any clubs o r organizations such as jehovah's witness groups, unions, fraternal or athletic groups, or school groups? No 05/18/2024 How often do you attend meet ings of the clubs or organizations you belong to? Never 05/18/2024 Are you , , di vorced, , never , or living with a partner? 05/18/2024 AUDIT-C Answer Date Recorded Q1: How often do you have a drink containing alc ohol? 2-3 times a week 05/18/2024 Q2: How many drinks containi ng alcohol do you have on a typical day when you are drinking? 1 or 2 05/18/2024 Q3: How often do you have si x or more drinks on one occasion? Never 05/18/2024 Overall Financial Resource Strain (CARDIA) Answe r Date Recorded How hard is it for you to pa y for the very basics like food, housing, medical care, and heating? Not hard at all 05/18/2024 PHQ-2 Answer Date Recorded PHQ-2 Total Score (If total score is 3 or more points, staff should administer the PHQ-9) 0 06/09/2023 [facility] - Occupational Stress Questionnaire Answer Date Recorded Feeling of Stress Not at all 06/12/2019 Exercise Vital Sign Answer Date Recorde d Days of Exercise per Week 2 days 2018 Minutes of Exercise per Session 30 min 06/12/2019 Hunger Vital Sign Answer Date Recorded Within the past 12 months, y ou worried that your food would run out before you got the money to buy more. Never true 05/18/20 24 Within the past 12 months, t he food you bought just didn't last and you didn't have money to get more. Never true 05/18/2024 PRAPARE - Transportation Answer Date Re corded In the past 12 months, has l ack of transportation kept you from medical appointments or from getting medications? No 04/30 In the past 12 months, has l ack of transportation kept you from meetings, work, or from getting things needed for daily living? No 05/18/2024 Housing Stability Vital Sign Answer Kumar e Recorded In the last 12 months, was t here a time when you were not able to pay the mortgage or rent on time? No 05/18/2024 In the past 12 months, how m any times have you moved where you were living? 1 05/18/2024 At any time in the past 12 m [facility], were you homeless or living in a snf (including now)? No 05/18/2024 Personal Safety Answer Date Recorded Have you ever been in or are you currently in a harmful physical or emotional relationship or is someone making you feel afraid or unsafe? 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 on file Not on file Not on file Last Filed Vital Signs Vital Sign Reading Time Taken Comments Blood Pressure 124/60 05/19/2024 8:00 AM CDT Pulse 72 05/19/2024 8:00 AM CDT Temperature 36.6 ??C (97.9 ??F) 05/19/2024 8:00 AM CD T Respiratory Rate 16 05/19/2024 8:00 AM CDT Oxygen Saturation 94% 05/19/2024 8:00 AM CDT Inhaled Oxygen Concentration - - Weight 77.1 kg (170 lb) 10/18/2024 2:18 PM CAR REPOSSESSOR Height 170.2 cm (5' 7 ) 10/18/2024 2:18 PM CAR REPOSSESSOR Body Mass Index 26.63 10/18/2024 2:18 PM CAR REPOSSESSOR Plan of Treatment Not on file Medical Devices Implanted Type Area Protective Signal Superintendent Device Identifier Shelf Expiration Date Model / Serial / Lot Right Total Knee Replacement Right: Knee [employer] Tibial Baseplate Knee Porous Left Fixed Keel Persona [place] Size F Titanium [id number] - [id number] Implanted:Qty: 1 on 05/18/2024 by Kike Centeno DO at [facility] Left: Knee [employer] [id number] 02/10/2034 [id number] / / [id number] [employer] Component Femoral Knee Porous Cr Standard Left Persona Pps Size 10 [place] Chromium [id number] - [id number] Implanted:Qty: 1 on 05/18/2024 by Kike Centeno DO at [facility] Left: Knee [employer] [id number] 02/01/2034 [id number] / / [id number] [employer] Persona 10mm Knee Left 8-11 E-F Insert Articular Vivacit-E [id number] - [id number] Implanted:Qty: 1 on 05/18/2024 by Kike Centeno DO at [facility] Left: Knee [employer] [id number] 12/14/2028 [id number] / / [id number] Procedures Procedure Name Priority Date/Time Associated Diagnosis Comments XR KNEE LEFT 3 VIEWS Schedule Routine, Read Routine (OP Routine) 10/02/2024 11:33 AM CAR REPOSSESSOR S/P TKR (total knee replacement) using cement, left COLONOSCOPY Routine 07/21/2022 from Last 3 Months or Most Recently Relevant to Health Maintenance Results * XR Knee Left 3 Views (10/02/2024 11:33 AM CAR REPOSSESSOR) Anatomical Region Laterality Modality Lower Extremities, Knee Left Computed Radiography 10/03/2024 10:0 8 AM CAR REPOSSESSOR Narrative 10/03/2024 10:08 AM CAR REPOSSESSOR EXAM DESCRIPTION: XR KNEE LEFT 3 VIEWS REASON FOR STUDY: pain ?? Mild general knee pains since total knee replacement 05-18-24 ? FINDINGS: Three views submitted with comparison 06/29/2024. 2 component left knee arthroplasty is in near anatomic alignment. ??There are no fractures or evidence of loosening. ??Knee effusion is present. ??There is soft tissue swelling about the knee. ??Arterial atherosclerosis is noted. IMPRESSION: 2 component left knee arthroplasty in near anatomic alignment. Left knee effusion with soft tissue swelling. THIS IS AN ELECTRONICALLY VERIFIED FINAL REPORT 10/03/2024 10:08 AM - Electronically signed by ??Lucho Hays M.D. D: ??10/03/2024 10:08 AM T: Report ID: [id number] Reading Location: ??[id number] Procedure Note Lucho Hays MD - 10/03/2024 EXAM DESCRIPTION: XR KNEE LEFT 3 VIEWS REASON FOR STUDY: pain Mild general knee pains since total knee replacement 05-18-24 FINDINGS: Three views submitted with comparison 06/29/2024. 2 component left knee arthroplasty is in near anatomic alignment. Thereare no fractures or evidence of loosening. Knee effusion is present. Thereis soft tissue swelling about the knee. Arterial atherosclerosis is noted. IMPRESSION: 2 component left knee arthroplasty in near anatomic alignment. Left knee effusion with soft tissue swelling. THIS IS AN ELECTRONICALLY VERIFIED FINAL REPORT 10/03/2024 10:08 AM - Electronically signed by Lucho Hays M.D. 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 Power of Varnisher Plastico[employer] 05/04/2024 11:30 AM * Full Code (Latest Code Status on File) Date Activated Date Inactivated Comments 05/18/2024 10:45 AM 05/19/2024 2:15 PM Care Teams City Planning Teacher Relationship Specialty Start Date End Date Woody Fry DO [address] [facility] [address] [place] [address] PCP - General Internal Medicine 05/02/24 Aj López MD [address] [facility] [address] [place] [address] Consulting Physician Interventional Cardiology 04/19/24 Deidre Lomeli PA [address] [address] [place] [address] [place] [id number] Orthopedic Surgery 05/18/24
--- OUTSIDE RECORDS SUMMARY | 2024-12-27 03:27 | XMS_ITS | Encounter Summary ---
Author Organization [facility] Address [address] [place] [address]. [place], [place] [id number] [place] [id number] Care Team Providers Care Manager Of Financial Reporting Name Role Phone Woody Wu MD Primary Care Provider [phone] Reason for Referral * Surgical (Routine) - Closed Specialty Diagnoses / Procedures Referred By Yaw castro Referred To Contact Diagnoses Lumbar radiculopathy Procedures Case request operating room: INJECTION EPIDURAL TRANSFORAMINAL L4-5, L5-S1 Ev Burgess APNP Phone: tel: fax: Referral ID Status Reason Start Date Expiration Date Visits Re quested Visits Authorized [id number] Closed 09/15/2022 09/15/2023 1 1 Encounter Details Date Type Department Care Team (Late st Contact Info) Description 09/15/2022 Prep for Procedure [facility] Inter[facility] [place] [address] [id number] Ev Burgess APNP [address] [place] [phone] Social History Tobacco Use Types Packs/Day Years Used Date Smoking Tobacco: Never Smokeless Tobacco: Never Alcohol Use Standard Drinks/Week Comments Yes 0 (1 standard drink = 0.6 oz pur e alcohol) socially Sex and Gender Information Value Date Recorded Sex Assigned at Not on file Legal Sex Male 8:14 PM CDT Gender Identity Male 11/21/2021 9:19 AM TOUCH UP PAINTER HAND Sexual Orientation Choose not to disclose 2020 9:19 AM TOUCH UP PAINTER HAND COVID-19 Exposure Response Date Recorded In the last 10 days, have yo u been in contact with someone who was confirmed or suspected to have Coronavirus/COVID-19? No / Unsure 09/17/2022 8:23 AM CDT documented as of this encounter Plan of Treatment Scheduled Orders Name Type Priority Associated Diagnoses Orde r Schedule Case request operating room: INJECTION EPIDURAL TRANSFORAMINAL L4-5, L5-S1 Case Request Routine Lumbar radiculopathy Once for 1 Occurrences starting 09/15/2022 until 09/15/2022 documented as of this encounter Visit Diagnoses Diagnosis Lumbar radiculopathy- Primary Thoracic or lumbosacral neuritis or radiculitis, unspecified documented in this encounter Care Teams Manager Of Financial Reporting Relationship Specialty Start Date End Date Woody Wu MD PCP - General FAMILY PRACTICE 06/28/20 documented as of this encounter
--- OUTSIDE RECORDS SUMMARY | 2024-12-27 03:27 | XMS_ITS | Encounter Summary ---
Author Organization [facility] Health Address [address] [place] [address] Care Team Providers Care Regeneration Operator Name Role Phone Unavailable Primary Care Provider Unavailabl e Encounter Details Date Type Department Care Team (Late st Contact Info) Description 06/27/2021 Lab Requisition [facility] [address] [facility] [place] [address] Alex Mercedes MD [address] [place], [place] [id number] Social History Tobacco Use Types Packs/Day Years Used Date Smoking Tobacco: Never Assessed Sex and Gender Information Value Date Recorded Sex Assigned at Not on file Gender Identity Not on file Sexual Orientation Not on file documented as of this encounter Plan of Treatment Not on file documented as of this encounter Procedures Procedure Name Priority Date/Time Associated Diagnosis Comments DERMATOPATHOLOGY Routine 06/25/2021 12:0 0 AM CDT documented in this encounter Results * DERMATOPATHOLOGY (06/25/2021 12:00 AM CDT) Case Report Dermatopathology Report ? Case: [id number] ? Authorizing Provider: ??Alex Mercedes MD ?Collected: ? 06/25/2021 12:00 AM ? Ordering Location: ? [facility] DermPath Lab ?Received: ?06/27/2021 09:38 AM ? Pathologist: ? Luzmaria Zavala MD ? Specimen: ?Skin, right post neck ? 6:42 PM [facility] DERMATOPATHOLOGY LABORATORY Final Diagnosis Specimen A. 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 The specimen consists of a shave biopsy measuring 11x7x2 mm. Jar 0. 6:42 PM [facility] DERMATOPATHOLOGY LABORATORY Microscopic Description Specimen A. SKIN, [...] Additional deeper sections were obtained and reviewed. 6:42 PM [facility] DERMATOPATHOLOGY LABORATORY Disclaimer An external and internal positive and negative controls are appropriate for the histochemical, immunohistochemical and immunofluorescence stain(s) in this case (if any), except where stated explicitly. The performance characteristics of the stain(s) cited in this report were developed and its performance characteristic determined by the Dermatopathology Laboratory at [facility], directed by Dr. Rach Grissom. These tests need not be, and therefore are not, approved by the [place] Food and Drug Administration. The tests are used for clinical purposes. Billing Codes Specimen Charges Stain Charges 11191 1 74390 1 1 6:42 PM CDT DERMATOPATHOLOGY LABORATORY Embedded Images 1 6:42 PM CDT DERMATOPATHOLOGY LABORATORY Pathology/Cytolog y TISSUE SPECIMEN FROM SKIN / Unknown 06/25/2021 06/27/2021 9:38 AM CDT Alex Mercedes MD LAB - PATHOLOGY/CYTO LOGY ORDERABLES DERMATOPATHOLOGY LABORATORY [facility] - Department of Dermatology [address], [address] Floor [address] [phone] documented in this encounter Visit Diagnoses Not on filedocumented in this encounter
--- OUTSIDE RECORDS SUMMARY | 2024-12-27 03:27 | XMS_ITS | Encounter Summary ---
Author Organization [facility] Facility Care Team Providers Care Light Truck Driver Name Role Phone Woody Wu MD Primary Care Provider Marquita Valentino LPN Unavailable [phone] Aj López MD Unavailable [phone] No, Physician Primary Care Provider [phone] Woody Fry DO Primary Care Provider [phone] Deidre Lomeli Unavailable [phone] Encounter Details Date Type Department Care Team (Latest Contact Info) Description 06/24/2018 Orders Only [facility] CLINCONV ProviderAyaz MD [address] [place] [id number] Social History Tobacco Use Types Packs/Day Years Used Date Smoking Tobacco: Never Smokeless Tobacco: Never Alcohol Use Standard Drinks/Week Comments Yes 0 (1 standard drink = 0.6 oz pur e alcohol) Sex and Gender Information Value Date Recorded Sex Assigned at Not on file Legal Sex Male 3:45 PM POCKET MAKER Gender Identity Not on file Sexual Orientation Not on file documented as of this encounter Plan of Treatment Not on file documented as of this encounter Procedures Procedure Name Priority Date/Time Associated Diagnosis Comments SCAN - LABS 06/24/2018 12:00 AM CDT documented in this encounter Results * SCAN - LABS (06/24/2018 12:00 AM CDT) Narrative 06/24/2018 12:00 AM CDT Ordered by an unspecified provider. us Historical Provider Final Res ult documented in this encounter Visit Diagnoses Not on filedocumented in this encounter Care Teams Light Truck Driver Relationship Specialty Start Date End Date Woody Wu MD PCP - General 02/26/17 04/18/24 No, Physician PCP - General 04/20/24 05/01/24 Woody Fry DO PCP - General Internal Medicine 05/02/24 Marquita Valentino LPN Accounting Manager Assistant Controller 11/01/19 11/01/19 Aj López MD [address] [facility] [address] [place] [address] Consulting Physician Interventional Cardiology 04/19/24 Deidre Lomeli PA [address] [place] [address] [place] [address] Orthopedic Surgery 05/18/24 documented as of this encounter
--- OUTSIDE RECORDS SUMMARY | 2024-12-27 03:27 | XMS_ITS | Clinical Summary ---
Author Organization [facility] Address [address] [place] [address] Care Team Providers Care Hammer Runner Name Role Phone Aj López MD Unavailable [phone] Woody Fry DO Primary Care Provider [phone] Deidre Lomeli Unavailable [phone] Allergies Active Allergy Reactions Criticality Noted Date [...] a PT script today to bring into [place] outpatient physical therapy as we are unable [...] zetia Assessment & Plan (10/04/2019 1:26 PM SIEVE MAKER): His lipid profile today demonstrates a cholesterol [...] goal Assessment & Plan (10/05/2018 2:30 PM SIEVE MAKER): . SCRIBED Cholesterol, Total l - h [...] coronary artery bypass graft 06/13/2013 Overview (03/04/2017): COR MICHELLE KENDALL Assessment & Plan (03/16/2018 10:55 AM [...] artery disease of n ative artery of [place] heart with stable angina pectoris 06/13/2013 Overview (11/09/2019): CAD, [place] Vessel Assessment & Plan (05/03/2023 10:14 AM [...] negative Assessment & Plan (10/04/2019 1:30 PM SIEVE MAKER): He remains asymptomatic so I made no [...] up Assessment & Plan (10/05/2018 2:26 PM SIEVE MAKER): 1.No diagnostic ST changes. 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); Chronic bilateral low back pain without sciatica; Lumbar facet arthropathy-multilevel , severe L5-S1; Spinal stenosis, lumbar region, severe L3-L4, moderate/severe L4-L5, without neurogenic claudication; 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 10/02/2024 10:49 AM SIEVE MAKER - 10/02/2024 11:59 PM SIEVE MAKER Hospital Encounter [facility] Diag Imaging [address] [place] [address] S/P TKR (total knee replacement) using cement, left Discharge Disposition: Discharge to home or self care 10/02/2024 10:45 AM SIEVE MAKER Office Visit [facility] Orthopedics and Sports Medicine [address] [place] [address] [place] [phone] Kike Centeno DO S/P TKR (total knee replacement) using cement, left (Primary Dx) from Last 3 Months Immunizations Name Administration Dates Next Due Influenza Virus Vaccine Trivalent Mdv 10/17/2012 Influenza, Quadrivalent, Hig h Dose, Preservative Free, Intrr 09/10/2021 Influenza, Trivalent, High D ose, Split, Preservative Free, Intramuscular 09/21/2018 Influenza, Trivalent, IM (MDV) 10/17/2012 Influenza, Unspecified 08/29/2022,08/29/2021 Pneumococcal Polysaccharide PPV23 04/08/2012 Surgical History Surgery Date Site/Laterality Comments TONSILLECTOMY tonsillectomy CORONARY ARTERY BYPASS GRAFT 4 vessel VASECTOMY KNEE SURGERY 11/10/2019 Left quad tendon repair CYST REMOVAL 07/16/2021 TOTAL KNEE ARTHROPLASTY 07/22/2021 Right [facility] Dr[facility] Mark Bustamante EYE SURGERY Right cataract IR INJECTION ARTHROGRAM SI JOINT LEFT INCLUDES IMAGING GUIDANCE 03/08/2023 Left IR INJECTION ARTHROGRAM SI JOINT RIGHT INCLUDES IMAGING GUIDANCE 04/20/2023 Right Medical History Medical History Date Comments Hypertension Hypercholesteremia Primary osteoarthritis of left knee Rupture of left quadriceps tendon 10/2019 Lumbar facet arthropathy Degeneration of intervertebr al disc of lumbar region with osteophyte of lumbar vertebra Spondylosis of lumbar spine Lumbar canal stenosis 11/27/2021 Severe L3- L4, moderate/severe L4-L5 Protrusion of lumbar intervertebral disc 021 Large L3-L4 Foraminal stenosis of lumbar region 11/27/2021 Multilevel Ligamentum flavum hypertrophy-lumbar Arthritis of right sacroiliac joint (HCC) Piriformis syndrome of left side Piriformis syndrome of right side Allergic rhinitis hay fever Family History Medical History Relation Name Comments Heart attack Brother 2 Heart attack Father No Known Problems Mother Relation Name Status Comments Brother 1 Alive Brother 2 Father Alive Mother Social History Tobacco Use Types Packs/Day Years Used Date Smoking Tobacco: Never Smokeless Tobacco: Never Tobacco Cessation:Counseling Given: Not Answered Alcohol Use Standard Drinks/Week Comments Yes 0 (1 standard drink = 0.6 oz pur e alcohol) [facility] Utilities Answer Date Recorded In the past 12 months has th e electric, gas, oil, or water [employer] threatened to shut off services in your [...] 05/18/2024 How often do you attend chur ch or zoroastrianism services? Never 05/18/2024 Do you belong to any clubs o r organizations such as holiness groups, unions, fraternal or athletic groups, or [...] staff should administer the PHQ-9) 0 06/09/2023 [facility] [place] of Occupat ional Health - Occupational Stress [...] any time in the past 12 m [facility], were you homeless or living in a penitentiary (including now)? No 05/18/2024 Personal Safety Answer Date Recorded Have you ever been in or are you currently in a harmful physical or emotional relationship or is someone making you feel afraid or unsafe? 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 Not on file Not on file Obstetrics History Last Filed Vital Signs Vital Sign Reading Time Taken Comments Blood Pressure 124/60 05/19/2024 8:00 AM CDT Pulse 72 05/19/2024 8:00 AM CDT Temperature 36.6 ??C (97.9 ??F) 05/19/2024 8:00 AM CD T Respiratory Rate 16 05/19/2024 8:00 AM CDT Oxygen Saturation 94% 05/19/2024 8:00 AM CDT Inhaled Oxygen Concentration - - Weight 77.1 kg (170 lb) 10/18/2024 2:18 PM SIEVE MAKER Height 170.2 cm (5' 7 ) 10/18/2024 2:18 PM SIEVE MAKER Body Mass Index 26.63 10/18/2024 2:18 PM SIEVE MAKER Plan of Treatment Health Maintenance Due Date Last Done Comments Hepatitis B Screening 1962 Zoster Vaccine (1 of 2) 1994 Pneumococcal vaccine 65+ (2 of 2 - PCV) 04/08/2013 04/08/2012 Depression Screening 06/09/2024 06/09/2023, 05/27/2022, 01/16/2021, Additional history exists Well Visit 65+ 06/09/2024 06/09/2023, 04/30, 01/16/2021 Covid-19 Vaccine ( season) 2024 03/11/2022, 08/28/2021, 01/23/2021, Additional history exists Influenza Vaccine (#1) 2024 , 09/10/2021, 08/29/2021, Additional history exists DTaP/Tdap/Td Vaccine (1 - Tdap) 05/06/2025 Postponed from 1955 (Patient declined, but will receive in the future) Fall Risk Assessment 05/19/2025 05/19/2024, 06/09/2023, 05/27/2022, Additional history exists Colon Cancer Screening-DNA Stool 07/21/2025 07/21/2022, 06/10/2022, 07/05/2018 Colon Cancer Screening-CT Colonography Discontinued 07/21/2022 Colon Cancer Screening-Colonoscopy Discontinued 07/21/2022 Colon Cancer Screening-FIT Discontinued 07/21, 06/10/2022, 07/05/2018 Colon Cancer Screening-Sigmoidoscopy Discontinued 07/21/2022 Medical Devices Implanted Type Area Grinder Setup Operator Device Identifier Shelf Expiration Date Model / Serial / Lot Right Total Knee Replacement Right: Knee [employer] Tibial Baseplate Knee Porous Left Fixed Keel Persona [place] Size F Titanium [id number] - [id number] Implanted:Qty: 1 on 05/18/2024 by Kike Centeno DO at [facility] Left: Knee [employer] [id number] 02/10/2034 [id number] / / [id number] [employer] Component Femoral Knee Porous Cr Standard Left Persona Pps Size 10 [place] Chromium [id number] - [id number] Implanted:Qty: 1 on 05/18/2024 by Kike Centeno DO at [facility] Left: Knee [employer] [id number] 02/01/2034 [id number] / / [id number] [employer] Persona 10mm Knee Left 8-11 E-F Insert Articular Vivacit-E [id number] - [id number] Implanted:Qty: 1 on 05/18/2024 by Kike Centeno DO at [facility] Left: Knee [employer] [id number] 12/14/2028 [id number] / / [id number] Procedures Procedure Name Priority Date/Time Associated Diagnosis Comments XR KNEE LEFT 3 VIEWS Schedule Routine, Read Routine (OP Routine) 10/02/2024 11:33 AM SIEVE MAKER S/P TKR (total knee replacement) using cement, left COLONOSCOPY Routine 07/21/2022 from Last 3 Months or Most Recently Relevant to Health Maintenance Results * XR Knee Left 3 Views (10/02/2024 11:33 AM SIEVE MAKER) Anatomical Region Laterality Modality Lower Extremities, Knee Left Computed Radiography 10/03/2024 10:0 8 AM SIEVE MAKER Narrative 10/03/2024 10:08 AM SIEVE MAKER EXAM DESCRIPTION: XR KNEE LEFT 3 VIEWS [...] D: ??10/03/2024 10:08 AM T: Report ID: [id number] Reading Location: ??[id number] Procedure Note Lucho Hays MD - 10/03/2024 [...] by Lucho Hays M.D. T: Report ID: [id number] Reading Location: [id number] Kike Centeno DO IMG XR PROCEDURES Final Result * Colonoscopy (07/21/2022) Anatomical Region Laterality Modality Other 07/21/2022 Historical Provider ENDOSCOPY PROCEDURES Alessia l Result from Last 3 Months or Most Recently Relevant to Health Maintenance Insurance [facility] MEDICARE MEDICARE [facility] MEDICARE SUPPLEMENT Advance Directives For more information, please contact: [phone] Documents on File Type Date Recorded Patient District Agent Expl anation Power of Director Part 05/04/2024 11:30 AM * Full Code (Latest Code Status on File) Date Activated Date Inactivated Comments 05/18/2024 10:45 AM 05/19/2024 2:15 PM Care Teams Hammer Runner Relationship Specialty Start Date End Date Woody Fry DO [address] [place] [address] PCP - General Internal Medicine 05/02/24 Aj López MD [address] [place] [address] Consulting Physician Interventional Cardiology 04/19/24 Deidre Lomeli PA [address] [facility] [address] [address] Orthopedic Surgery 05/18/24
--- OUTSIDE RECORDS SUMMARY | 2024-12-27 03:27 | XMS_ITS | Clinical Summary ---
Author Organization [facility] Address [address] [place] [address]. [place] [address] [place] [address] Care Team Providers Care In Home Sales Consultant Name Role Phone Woody Wu MD Primary Care Provider [phone] Allergies No known active allergies Medications pravastatin (PRAVACHOL) 80 MG tablet Take 1 tablet by mouth daily. 08/20/2022 Active ezetimibe (ZETIA) 10 MG tablet Take 1 tablet by mouth daily. 12/12/2021 Active diclofenac EC (VOLTAREN) 50 MG tablet Take 50 mg by mouth daily. 08/20/2022 Active dilTIAZem XR (DILACOR XR) 120 MG 24 hr capsule Take 1 capsule by mouth daily. 08/19/2022 Active Lysine HCl Powder Take 1 tablet by mouth daily. Active Multiple Vitamins-Minera ls (MULTIVITAMIN ADULT, MINERALS,) Tab Take 1 tablet by mouth daily. Active Polyethylene Glycol 400 (BLINK TEARS OP) Apply 1 drop to eye daily as needed. Active vitamin D3, cholecalciferol , 1000 UNIT Tab tablet Take 1 tablet by mouth daily. Active cycloSPORINE (RESTASIS) 0.05 % ophthalmic emulsion Place 1 drop into both eyes 2 (two) times daily. 04/24/2022 Active Flaxseed, Linseed, (FLAX SEED OIL) 1000 MG capsule Take 1,000 mg by mouth daily. Active Glucos-Chondroi a-Kswllq-Vtuu (GLUCOSAMINE CHONDROIT-COLLA GEN) Cap Take 1 tablet by mouth 2 (two) times daily. Active HYDROcodone-saima taminophen (NORCO) 5-325 MG tablet Take 1 tablet by mouth every 6 (six) hours as needed. 08/31/2022 Active Active Problems Problem Noted Date Diagnosed Date Lumbar radiculopathy 09/16/2022 Overview (09/16/2022): Added automatically from request for surgery [id number] Family History Medical History Relation Comments Stent Cardiac Brother Heart Attack Father Relation Status Comments Brother Father Social History Tobacco Use Types Packs/Day Years Used Date Smoking Tobacco: Never Smokeless Tobacco: Never Alcohol Use Standard Drinks/Week Comments Yes 0 (1 standard drink = 0.6 oz pur e alcohol) socially Sex and Gender Information Value Date Recorded Sex Assigned at Not on file Legal Sex Male 8:14 PM CDT Gender Identity Male 11/21/2021 9:19 AM CATERING ADMINISTRATIVE ASSISTANT Sexual Orientation Choose not to disclose 2020 9:19 AM CATERING ADMINISTRATIVE ASSISTANT Last Filed Vital Signs Vital Sign Reading Time Taken Comments Blood Pressure 144/77 09/17/2022 9:17 AM CDT Pulse 81 09/17/2022 9:17 AM CDT Temperature 36.6 ??C (97.9 ??F) 09/17/2022 8:40 AM CD T Respiratory Rate 20 09/17/2022 9:17 AM CDT Oxygen Saturation 100% 09/17/2022 9:17 AM CDT Inhaled Oxygen Concentration - - Weight 73.1 kg (161 lb 3.2 oz) 09/17/2022 8:40 A M CDT Height 170.2 cm (5' 7 ) 09/17/2022 8:40 AM CDT Body Mass Index 25.25 09/17/2022 8:40 AM CDT Plan of Treatment Health Maintenance Due Date Last Done Comments PHQ-2 (Physician Solomon) 1957 DTaP, Tdap and Td Vaccines (1 - Tdap) 1963 Zoster Vaccines (1 of 2) 1994 Annual Medicare Wellness Visit 2009 Pneumococcal Vaccine: 65+ Years (2 of 2 - PCV) 04/08/2013 04/08/2012 RSV Immunization or 60+ Years (1 - 1-dose 75+ series) 2019 COVID-19 Vaccine (3 - season) 2024 01/23/2021, 01/01/2021 Influenza Adult (#1) 2024 08/29/2022, 08/29/2021, 09/21/2018, Additional history exists PHQ-2 (Physician Solomon) 11/29/2024 Meningococcal B Vaccine Aged Out No l onger eligible based on patient's age to complete this topic Meningococcal Vaccine Aged Out No cady naai eligible based on patient's age to complete this topic RSV Immunizations Under 20 Months Aged Out No longer eligible based on patient's age to complete this topic Insurance COMBINED INSURANCE MEDICARE [facility] Care Teams In Home Sales Consultant Relationship Specialty Start Date End Date Woody Wu MD PCP - General FAMILY PRACTICE 06/28/20
--- OUTSIDE RECORDS SUMMARY | 2024-12-27 03:27 | XMS_ITS | Referral Summary ---
Author Organization [facility] Address [address] [place] [address] Care Team Providers Care Pharmacy Data Analyst Name Role Phone Unavailable Primary Care Provider Unavailabl e Source Comments [facility],non-owned Affiliates and Associated Physician Practices is amultiple site organization consisting of ambulatory clinics and hospital sitesin [place], [place], [place] and [place]. This disclosure is being madepursuant to the Care Everywhere program and may not contain all information available regarding this patient. Last updated 18.[facility] [employer] Allergies Active Allergy Reactions Criticality Noted Date Comments Erythromycin Nausea and/or Vomiting 07/07/2021 Medications * Be aware that medications may not be up to date on this document. Alwaysverify current medications with the patient. Medication Sig Dispensed Refills Start Date End Date Status diclofenac sodium EC (VOLTAREN) 50 MG tablet Take 50 mg by mouth 01/16/2021 Active pravastatin (PRAVACHOL) 80 MG tablet Take 1 tablet by mouth once daily 06/10/2020 Active ezetimibe (ZETIA) 10 MG tablet Take 1 tablet by mouth once daily 11/11/2020 Active dilTIAZem ER 24hr (TIAZAC) 120 MG capsule Take 1 capsule by mouth once daily 02/09/2020 Active Flaxseed, Linseed, (FLAX SEED OIL) 1000 MG Take 1,000 mg by mouth once daily Active zinc gluconate 50 MG tablet Take 50 mg by mouth once daily Active sodium hyaluronate (HEALON) 10 MG/ML intraocular solution Acti ve Pckvvo-Kmtsthxaa-Ooc lag-Hyal (GLUCOSAMINE CHONDROIT-COLLAGEN) CAPS Take 1 tablet by mouth 2 times daily Active Cholecalciferol (VITAMIN D-[address] ST) 25 MCG (1000 UT) Take 1 tablet by mouth once daily Active Multiple Vitamin (MULTIVITAMIN ADULT PO) Take 1 tablet by mouth once daily Active LYSINE PO Take 1 tablet by mouth once daily Active traMADol (ULTRAM) 50 MG tablet Take 1 (one) tablet by mouth every 6 hours as needed for Pain 12 tablet 07/15/2021 Active sennosides (SENOKOT) 8.6 MG tablet Take 8.6 mg by mouth once daily 07/23/2021 Active oxyCODONE, immediate release, (ROXICODONE) 5 MG tablet Take 5 mg by mouth every 4 hours as needed 07/23/2021 Active meloxicam (MOBIC) 7.5 MG tablet Take 7.5 mg by mouth 2 times daily 07/23/2021 Active acetaminophen (TYLENOL) 500 MG tablet Take 500 mg by mouth 4 times daily 07/23/2021 Active Polyethylene Glycol 400 0.25 % 1 drop by Ophthalmic route every 24 hours as needed Active Restasis 0.05 % ophthalmic suspension INSTILL ONE DROP INTO EACH EYE TWICE DAILY 04/24/2022 Active diclofenac sodium EC (Voltaren) 50 MG tablet Take 50 mg by mouth 2 times daily as needed 08/20/2022 Active dilTIAZem coated beads 24hr (Cardizem CD) 120 MG capsule 08/19/2022 Active Active Problems Problem Noted Date Diagnosed [...] Mass Index 24.43 08/31/2022 2:01 PM CDT Plan of Treatment Not on file
--- OUTSIDE RECORDS SUMMARY | 2024-12-27 03:27 | XMS_ITS | Clinical Summary ---
Author Organization [facility] As Seen on TV Address [address] [place] [address] Care Team Providers Care Graphic Art Designer Name Role Phone Unavailable Primary Care Provider Unavailabl e Source Comments [facility],non-owned Affiliates and Associated Physician Practices is amultiple site organization consisting of ambulatory clinics and hospital sitesin [place], [place], [place] and [place]. This disclosure is being madepursuant to the Care Everywhere program and may not contain all information available regarding this patient. Last updated 18.[facility] As Seen on TV Allergies Active Allergy Reactions Criticality Noted Date [...] (HEALON) 10 MG/ML intraocular solution Acti ve Mtajaw-Gdilrdmev-Mmh lag-Hyal (GLUCOSAMINE CHONDROIT-COLLAGEN) CAPS Take 1 tablet [...] Signed by Ryan Melendez MD on 12/31/2021 Family History Medical History Relation Name Comments CAD (Coronary Artery Disease) Father Diabetes - Type 2 Mother Relation Name Status Comments Father Mother Social History Tobacco Use Types Packs/Day [...] 08/31/2022 2:01 PM CDT Plan of Treatment Health Maintenance Due Date Last Done Comments MEDICARE AWV ? 12 MONTHS 1945 DTAP/TDAP/TD VACCINES (1 - Tdap) 1963 PNEUMOCOCCAL VACCINE 50+ (1 of 1 - PCV) 1994 ZOSTER VACCINE (1 of 2) 1994 Respiratory Syncytial Virus (RSV) Vaccine Pt: or over 60 yrs (1 - 1-dose 75+ series) 2019 COVID-19 VACCINE ( season) 2024 01/23/2021, 01/01/2021 INFLUENZA VACCINE (#1) 2024 2, 08/29/2021, 09/21/2018, Additional history exists DEPRESSION SCREENING 11/29/2024 HEPATITIS B VACCINE Aged Out No longe r eligible based on patient's age to complete this topic HIB VACCINE Aged Out No longer eligi ble based on patient's age to complete this topic HPV VACCINE Aged Out No longer eligi ble based on patient's age to complete this topic MENINGOCOCCAL (Group B) VACCINE Aged Out No longer eligible based on patient's age to complete this topic MENINGOCOCCAL VACCINE Aged Out No cady anai eligible based on patient's age to complete this topic
[2024-12-27 08:54] VITALS: BP 138/67; PULSE 71; RESP 16; TEMP 36.4; O2SAT 97
[2024-12-27] MEDS: LACTATED RINGERS 1,000 ML 150 ML IV CONT (09:02)
--- NOTE | 2024-12-27 09:28 | P.PNAN_ITS ---
Anes - Initial Pre Proc Eval Procedure: Operation Date: 12/27/24 09:30 Proposed Procedures p Colonoscopy - Callum Beltrán MD Date/Time: 12/27/24 09:28 Surgeon: Callum Beltrán MD Pre Op Diagnosis: anemia Patient Data Age: 79 Gender: M Height: 1.7 m Weight: 73.6 kg Last Vital Signs Temp 36.4 C L 12/27/24 08:54 Pulse 71 12/27/24 08:54 Resp 16 12/27/24 08:54 BP 138/67 12/27/24 08:54 Pulse Ox 97 12/27/24 08:54 O2 Del Method Room Air 12/27/24 08:54 Allergies Allergy/AdvReac Type Severity Reaction Status Date / Time erythromycin base Allergy Unknown Verified 12/27/24 08:46 Home Medications ?Medication ?Instructions ?Recorded ?Confirmed ?Type cyclosporine 0.05 % eye drops in a 1 drp EACH EYE BID 08/27/22 12/27/24 History dropperette (Restasis) diltiazem HCl 120 mg 120 mg PO DAILY 08/27/22 12/27/24 History capsule,extended release 24 hr ezetimibe 10 mg tablet (Zetia) 10 mg PO DAILY 08/27/22 12/27/24 History pravastatin 80 mg tablet 80 mg PO DAILY 08/27/22 12/27/24 History ascorbate calcium (vitamin C) 500 500 mg PO DAILY 09/21/23 12/27/24 History mg tablet aspirin 81 mg tablet,delayed 81 mg PO DAILY 09/21/23 12/27/24 History release (Adult Aspirin Regimen) coenzyme Q10 30 mg capsule (Co 30 mg PO DAILY 09/21/23 12/27/24 History Q-10) glucosamine 750 mg-MSM 60 1 tablet PO DAILY 09/21/23 12/27/24 History mg-chondroit 150 mg-hyaluron ac 1 mg tablet multivitamin 1 tablet PO DAILY 09/21/23 12/27/24 History ferrous sulfate 325 mg (65 mg 325 mg PO DAILY 10/16/24 12/27/24 History iron) tablet flaxseed oil 1,000 mg capsule 1,000 mg PO DAILY 12/14/24 12/27/24 History Patient hx anesthesia problems: none Family hx anesthesia problems: none Results Review: All pre-operative results and documents have been reviewed as part of the pre- operative evaluation. [facility] Past Medical History Medical History High cholesterol Family History Family History Father Asthma Heart disease Mother Diabetes mellitus Hypertension Cerebrovascular accident Sibling Diabetes mellitus Hypertension Heart disease Social History Social History Social History: Caffeine-daily Smoking status: Never smoker Alcohol intake: current Drinks per week: 5 Alcohol use details: moderate Substance use: never Substance use type: does not use Lack of Transportation: No Lack of Food: Never True Current Housing: I Have Housing Concerned About Future Housing: No Difficulty Paying Gas/Electric Bills: No Difficulty Paying for Meds: No Currently Unemployed: No Education: Bachelor's Degree Difficulty w/ Childcare or Family Care: No Living arrangements: with family Spiritual care concerns: No Anes - Eval Final PreProcedure Day of Procedure 12/27/24 09:28 Patient weight: normal Heart: regular rate and rhythm Lungs: clear to auscultation Airway: Mallampati scale class II Neurological: alert and oriented Last oral intake: >/= 8 hours ASA classification: III Emergent: no Anesthetic plan: proceed Anesthesia type and monitoring: general GIVS and standard monitoring Results Review: All pre-operative results and documents have been reviewed as part of the pre- operative evaluation. Informed Consent: The patient's anesthetic plan and its attendant risks and benefits were discussed with the patient/family/POA. Questions were solicited and answers provided to the satisfaction of the patient/family/POA.
--- NOTE | 2024-12-27 09:41 | PM.IMHP ---
H&P: HPI History of Present Illness Date/Time: 12/27/24 09:41 Chief Complaint: history of polyps Narrative: The patient has a history of colonic polyps, the last colonoscopy was more than 5 years ago. Review of Systems Review of Systems: All systems reviewed & are unremarkable except as noted in HPI and below PMFSH Past Medical History Medical History High cholesterol Family History Family History Father Asthma Heart disease Mother Diabetes mellitus Hypertension Cerebrovascular accident Sibling Diabetes mellitus Hypertension Heart disease Social History Social History Social History: Caffeine-daily Smoking status: Never smoker Alcohol intake: current Drinks per week: 5 Alcohol use details: moderate Substance use: never Substance use type: does not use Lack of Transportation: No Lack of Food: Never True Current Housing: I Have Housing Concerned About Future Housing: No Difficulty Paying Gas/Electric Bills: No Difficulty Paying for Meds: No Currently Unemployed: No Education: Bachelor's Degree Difficulty w/ Childcare or Family Care: No Living arrangements: with family Spiritual care concerns: No Meds Home Medications and Allergies Home Medications ?Medication ?Instructions ?Recorded ?Confirmed ?Type cyclosporine 0.05 % eye drops in a 1 drp EACH EYE BID 08/27/22 12/27/24 History dropperette (Restasis) diltiazem HCl 120 mg 120 mg PO DAILY 08/27/22 12/27/24 History capsule,extended release 24 hr ezetimibe 10 mg tablet (Zetia) 10 mg PO DAILY 08/27/22 12/27/24 History pravastatin 80 mg tablet 80 mg PO DAILY 08/27/22 12/27/24 History ascorbate calcium (vitamin C) 500 500 mg PO DAILY 09/21/23 12/27/24 History mg tablet aspirin 81 mg tablet,delayed 81 mg PO DAILY 09/21/23 12/27/24 History release (Adult Aspirin Regimen) coenzyme Q10 30 mg capsule (Co 30 mg PO DAILY 09/21/23 12/27/24 History Q-10) glucosamine 750 mg-MSM 60 1 tablet PO DAILY 09/21/23 12/27/24 History mg-chondroit 150 mg-hyaluron ac 1 mg tablet multivitamin 1 tablet PO DAILY 09/21/23 12/27/24 History ferrous sulfate 325 mg (65 mg 325 mg PO DAILY 10/16/24 12/27/24 History iron) tablet flaxseed oil 1,000 mg capsule 1,000 mg PO DAILY 12/14/24 12/27/24 History Allergies Allergy/AdvReac Type Severity Reaction Status Date / Time erythromycin base Allergy Unknown Verified 12/27/24 08:46 Vital Signs Vital Signs - 24 hr 12/27/24 08:54 Temperature 97.5 F L Pulse Rate 71 Respiratory Rate 16 Blood Pressure 138/67 Pulse Oximetry 97 Oxygen Delivery Room Air Exam Const: General: cooperative and healthy appearing Resp: Effort & Inspection: normal respiratory effort and able to speak in complete sentences Auscultation: clear to auscultation bilaterally Cardio: Rate: regular rate Rhythm: regular rhythm GI: Inspection: normal to inspection GI Palp: No No hepatosplenomegaly present Auscultation: normal bowel sounds Rectal Exam: deferred Skin: General skin exam: normal color Psych: Appearance: grossly normal Mental Status: mental status grossly normal Assessment and Plan Assessment and plan (1) Family history of polyps in the colon: Code(s): Z83.719 - Family history of colon polyps, unspecified Status: Acute
[2024-12-27 10:14] VITALS: BP 100/59; PULSE 76; RESP 14; O2SAT 98
[2024-12-27 10:24] VITALS: BP 115/69; PULSE 77; RESP 20; O2SAT 100
[2024-12-27 10:34] VITALS: BP 117/69; PULSE 71; RESP 18; O2SAT 100
== END 2024-12-27 10:47 | disposition home or self-care (01) ==
PROVIDERS: PCP Clinical Nurse Specialist; Visit Provider Internal Medicine Gastroenterology
PROC: 0DJD8ZZ Inspection of Lower Intestinal Tract, Via Natural or Artificial Opening Endoscopic (ICD-10-PCS; CPT 45378; principal; 2024-12-27 09:30)
DX: Z12.11 Encounter for screening for malignant neoplasm of colon (principal); K63.5 Polyp of colon; E78.00 Pure hypercholesterolemia, unspecified; D64.9 Anemia, unspecified; Z79.82 Long term (current) use of aspirin; Z83.719 Family history of colon polyps, unspecified; Z82.49 Family history of ischemic heart disease and other diseases of the circulatory system
CPT/HCPCS: 45390; 88305; J1596; J2003; J2704; J7120

== ENCOUNTER 2025-04-10 11:29 | Outpatient (CLI) | payer MEDICARE, SELFPAY ==
--- OUTSIDE RECORDS SUMMARY | 2025-04-10 11:48 | XMS_ITS | Encounter Summary ---
Author Organization [facility] Facility Care Team Providers Care Supervisor Cellars Name Role Phone Woody Wu MD Primary Care Provider [phone] Marquita Valentino LPN Unavailable [phone] Aj López MD Unavailable [phone] No, Physician Primary Care Provider [phone] Woody Fry DO Primary Care Provider [phone] Deidre Lomeli Unavailable [phone] Encounter Details Date Type Department Care Team (Latest Contact Info) Description 07/11/2018 Orders Only [facility] ProviderAyaz MD [address] [place] [id number] Social History Tobacco Use Types Packs/Day Years Used Date Smoking Tobacco: Never Smokeless Tobacco: Never Alcohol Use Standard Drinks/Week Comments Yes 0 (1 standard drink = 0.6 oz pur e alcohol) Sex and Gender Information Value Date Recorded Sex Assigned at Not on file 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 Gender Identity Not on file Sexual Orientation [...] on filedocumented in this encounter Care Teams Supervisor Cellars Relationship Specialty Start Date End Date Woody Wu MD PCP - General 02/26/17 04/18/24 No, Physician PCP - General 04/20/24 05/01/24 Woody Fry DO PCP - General Internal Medicine 05/02/24 Marquita Valentino LPN Entry Level Automotive Technician 11/01/19 11/01/19 Aj López MD [address] [facility] [address] [facility] [place] [address] Consulting Physician Interventional Cardiology 04/19/24 Deidre Lomeli PA [address] [place] [address] [place] [id number] Orthopedic Surgery 05/18/24 documented as of this encounter
--- OUTSIDE RECORDS SUMMARY | 2025-04-10 11:48 | XMS_ITS | Encounter Summary ---
Author Organization [facility] Address [address] [place] [address] Care Team Providers Care Game Farm Helper Name Role Phone Unavailable Primary Care Provider Unavailabl e Encounter Details Date Type Department Care Team (Late st Contact Info) Description 06/27/[address] [facility] [address] [place] [address] Alex Mercedes MD [address] [place], [place] [id number] Social History Tobacco Use Types Packs/Day Years Used Date Smoking Tobacco: Never Assessed Sex and Gender Information Value Date Recorded Sex Assigned at Not on file Legal Sex Male 9:02 AM CDT Gender Identity Not on file Sexual Orientation Not on file documented as of this encounter Plan of Treatment Not on file documented as of this encounter Procedures Procedure Name Priority Date/Time Associated Diagnosis Comments DERMATOPATHOLOGY Routine 06/25/2021 12:0 0 AM CDT documented in this encounter Results * DERMATOPATHOLOGY (06/25/2021 12:00 AM CDT) Case Report Dermatopathology Report Case: [id number] Authorizing Provider: Alex Mercedes MD Collected: 06/25/2021 12:00 AM Ordering Location: [facility] Received: 06/27/2021 09:38 AM Pathologist: Luzmaria Zavala MD Specimen: Skin, right post neck 6:42 PM CDT DERMATOPATHOLOGY LABORATORY Final Diagnosis Specimen A. 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 The specimen consists of a shave biopsy measuring 11x7x2 mm. Jar 0. 6:42 PM CDT DERMATOPATHOLOGY LABORATORY Microscopic Description Specimen A. SKIN, [...] sections were obtained and reviewed. 6:42 PM CDT DERMATOPATHOLOGY LABORATORY Disclaimer An external and internal positive and negative controls are appropriate for the histochemical, immunohistochemical and immunofluorescence stain(s) in this case (if any), except where stated explicitly. The performance characteristics of the stain(s) cited in this report were developed and its performance characteristic determined by the Dermatopathology Laboratory at [facility], directed by Dr. Rach Grissom. These tests need not be, and therefore are not, approved by the [place] Food and Drug Administration. The tests are used for clinical purposes. Billing Codes Specimen Charges Stain Charges 71048 1 03857 1 6:42 PM CDT DERMATOPATHOLOGY LABORATORY Embedded Images 6:42 PM CDT DERMATOPATHOLOGY LABORATORY Pathology/Cytolog y TISSUE SPECIMEN FROM SKIN / Unknown 06/25/2021 06/27/2021 9:38 AM CDT us Alex Mercedes MD LAB - PATHOLOGY/CYTOLOGY ORDERAB LES Final Result DERMATOPATHOLOGY LABORATORY [facility] - Department of Dermatology [address], [address] [phone] documented in this encounter Visit Diagnoses Not on filedocumented in this encounter
--- OUTSIDE RECORDS SUMMARY | 2025-04-10 11:48 | XMS_ITS | Referral Summary ---
Author Organization [facility] D Address [address] [place] [address] Care Team Providers Care Tire Buster Name Role Phone Aj López MD Unavailable [phone] Woody Fry DO Primary Care Provider [phone] Deidre Lomeli Unavailable [phone] Encounters Date Type Department Care Team Description 03/29/2025 1:53 PM CDT - 03/29/2025 11:59 PM CDT Hospital Encounter [facility] Di[facility] Imaging [facility] [place] [address] Left shoulder pain, unspecified chronicity Discharge Disposition: Discharge to home or self care 03/29/2025 2:15 PM CDT Office Visit [facility] Orthopedics and Sports Medicine [facility] [address] [place] [address] Lm Gary PA Left shoulder pain, unspecified chronicity (Primary Dx); Primary osteoarthritis of left shoulder from Last 3 Months Allergies Active Allergy Reactions Criticality Noted Date Comments Erythromycin Stomach upset,Nausea And Vomiting Low 07/07/2021 Patient states upset stomach. Medications ascorbic acid, vitamin C, (VITAMIN C) 500 mg capsule, extended release CR capsule take 1 tablet by mouth once daily 0 0 11/24/201 5 Active cycloSPORINE (RESTASIS) 0.05 % ophthalmic emulsion Administer 1 drop into both eyes 2 (two) times a day Active dilTIAZem CD/XR/XT (Cartia XT) 120 mg 24 hr capsule TAKE 1 CAPSULE BY MOUTH EVERY DAY 90 capsule 3 4 Active pravastatin (PRAVACHOL) 80 mg tablet Take 1 tablet (80 mg total) by mouth daily 90 tablet 3 4 Active ezetimibe (ZETIA) 10 mg tablet TAKE 1 TABLET BY MOUTH EVERY DAY 30 tablet 11 5 Active aspirin 81 mg chewable tablet Take 1 tablet (81 mg total) by mouth daily Active multivitamin tabletIndicatio ns:Vitamin Deficiency Prevention Take 1 tablet by mouth Active oxyCODONE (ROXICODONE) 5 mg immediate release tabletIndicatio ns:Pain Take 1 tablet (5 mg total) by mouth every 4 (four) hours as needed for pain 30 tablet 4 03/29/20 25 Discontin ued(Thera py completed ) apixaban (ELIQUIS) 2.5 mg tabletIndicatio ns:VTE Prophylaxis Following Ortho Surgery Take 1 tablet (2.5 mg total) by mouth 2 (two) times a day 28 tablet 4 03/29/20 25 Discontin ued(Thera py completed ) Hospital, Clinic, or Other Facility Administered Medication Ordered Dose Route Frequency Start Date End Date Status lidocaine (XYLOCAINE) 10 mg/mL (1 %) injection 2 mLIndications:Admini stration of Local Anesthesia 2 mL One-Time Injection 03/29/2025 5 Ended triamcinolone (KENALOG) 40 mg/mL injection 40 mgIndications:Left shoulder pain, unspecified chronicity,Primary osteoarthritis of left shoulder 40 mg intra-artic One-Time Injection 03/29/2025 5 Ended Active Problems Problem Noted Date Diagnosed Date Left shoulder pain 03/29/2025 S/P TKR (total knee replacement) using cement, l eft 05/18/2024 Assessment & Plan (05/31/2024 1:49 PM CDT): Patient is doing well overall. X-rays were reviewed with the patient today in clinic and demonstrate hardware in good alignment without apparent complication. Patient will begin outpatient physical therapy - he was given a PT script today to bring into [facility] outpatient physical therapy as we are [...] zetia Assessment & Plan (10/04/2019 1:26 PM ASSISTANT PROFESSOR OF COMMUNICATION): His lipid profile today demonstrates a cholesterol [...] goal Assessment & Plan (10/05/2018 2:30 PM ASSISTANT PROFESSOR OF COMMUNICATION): . SCRIBED Cholesterol, Total l - h [...] artery bypass graft 06/13/2013 Overview (03/04/2017): COR ATH MORENO KENDALL Assessment & Plan (03/16/2018 10:55 AM [...] artery disease of n ative artery of [place] heart with stable angina pectoris 06/13/2013 Overview (11/09/2019): CAD, [place] Vessel Assessment & Plan (05/03/2023 10:14 AM [...] negative Assessment & Plan (10/04/2019 1:30 PM ASSISTANT PROFESSOR OF COMMUNICATION): He remains asymptomatic so I made no [...] up Assessment & Plan (10/05/2018 2:26 PM ASSISTANT PROFESSOR OF COMMUNICATION): 1.No diagnostic ST changes. 2.Global left ventricular [...] Date Arthritis of knee, left 05/18/202404/30 Immunizations Immunization Administration Dates Next Due Influenza Virus Vaccine [...] = 0.6 oz pur e alcohol) [facility] Lighteraities Answer Date Recorded In the past 12 months has e [employer], gas, oil, or water [employer] threatened to shut off services in your [...] often do you attend chur ch or scientologist services? Never 05/18/2024 Do you belong to any clubs o r organizations such as mosque groups, unions, fraternal or athletic groups, or [...] staff should administer the PHQ-9) 0 06/09/2023 [facility] of Occupat ional Health - Occupational Stress [...] any time in the past 12 m [facility], were you homeless or living in a correction (including now)? No 05/18/2024 Personal Safety Answer Date Recorded Have you ever been in or are you currently in a harmful physical or emotional relationship or is someone making you feel afraid or unsafe? 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 Not on file Not on file Last Filed Vital Signs Vital Sign Reading Time Taken Comments Blood Pressure 124/60 05/19/2024 8:00 AM CDT Pulse 72 05/19/2024 8:00 AM CDT Temperature 36.6 C (97.9 F) 05/19/2024 8:00 AM CDT Respiratory Rate 16 05/19/2024 8:00 AM CDT Oxygen Saturation 94% 05/19/2024 8:00 AM CDT Inhaled Oxygen Concentration - - Weight 77.1 kg (170 lb) 03/29/2025 2:46 PM CDT Height 170.2 cm (5' 7 ) 03/29/2025 2:46 PM CDT Body Mass Index 26.63 03/29/2025 2:46 PM CDT Plan of Treatment Not on file Medical Devices Implanted Type Area Orthopedics Nurse Device Identifier Shelf Expiration Date Model / Serial / Lot Right Total Knee Replacement Right: Knee [employer] Tibial Baseplate Knee Porous Left Fixed Keel Persona [place] Size F Titanium [id number] - [id number] Implanted:Qty: 1 on 05/18/2024 by Kike Centeno DO at [facility] Left: Knee [employer] [id number] 02/10/2034 [id number] / / [id number] [employer] Component Femoral Knee Porous Cr Standard Left Persona Pps Size 10 [place] Chromium [id number] - [id number] Implanted:Qty: 1 on 05/18/2024 by Kike Centeno DO at [facility] Left: Knee [employer] [id number] 02/01/2034 [id number] / / [id number] [employer] Persona 10mm Knee Left 8-11 E-F Insert Articular Vivacit-E [id number] - [id number] Implanted:Qty: 1 on 05/18/2024 by Kike Centeno DO at [facility] Left: Knee [employer] [id number] 12/14/2028 [id number] / / [id number] Procedures Procedure Name Priority Date/Time Associated Diagnosis Comments SD ARTHROCENTESIS ASPIR&/INJ MAJOR JT/BURSA W/O US Routine 03/29/2025 2:15 PM CDT Left shoulder pain, unspecified chronicity Primary osteoarthritis of left shoulder XR SHOULDER LEFT 2 OR MORE VIEWS Schedule Routine, Read Routine (OP Routine) 03/29/2025 2:00 PM CDT Left shoulder pain, unspecified chronicity COLONOSCOPY Routine 07/21/2022 from Last 3 Months or Most Recently Relevant to Health Maintenance Results * SD ARTHROCENTESIS ASPIR&/INJ MAJOR JT/BURSA W/O US (03/29/2025 2:15 PM CDT) Narrative Panfilo Rolle MD - 03/29/2025 2:15 PM CDT Panfilo Rolle MD 03/29/2025 8:15 PM Large Joint (Hip, Knee, Shoulder) Injection: L subacromial bursa Performed by: Lm Gary PA Authorized by: Lm aGry PA Large Joint Injection/Aspiration: Consent Given by: Patient Site marked: the procedure site was marked Timeout: prior to procedure the correct patient, procedure, and site was verified Verbal consent obtained: Yes Supporting Documentation: Indications: Pain Procedure Details: Location: Shoulder Site: L subacromial bursa Prep: patient was prepped and draped in usual sterile fashion Needle Size: 22 G Approach: Posterior Ultrasound guided: No Medications: 2 mL lidocaine 10 mg/mL (1 %); 40 mg triamcinolone 40 mg/mL Patient tolerance: Patient tolerated the procedure well with no immediate complications us Lm [facility] IN CLINIC/BEDSIDE ORD ERABLES Final Result * XR Shoulder Left 3 Views (03/29/2025 2:00 PM CDT) Anatomical Region Laterality Modality Upper Extremities, Shoulder Left Comp uted Radiography 03/29/2025 8:06 PM CDT Narrative 03/29/2025 8:07 PM CDT EXAM DESCRIPTION: XR SHOULDER LEFT 2 OR MORE VIEWS REASON FOR STUDY: PAIN Increased pain proximal humeral joint 2-3 mths, NKI FINDINGS: Four views submitted without comparison. No acute fracture. Alignment is normal. Mild glenohumeral and moderate acromioclavicular joint osteoarthritis. Sternotomy wires noted. IMPRESSION: Mild left glenohumeral and moderate acromioclavicular joint osteoarthritis. THIS IS AN ELECTRONICALLY VERIFIED FINAL REPORT 03/29/2025 8:07 PM - Electronically signed by Lucho Hays M.D. T: Report ID: [id number] Reading Location: [id number] Procedure Note Lucho Hays MD - 03/29/2025 EXAM DESCRIPTION: XR SHOULDER LEFT 2 OR MORE VIEWS REASON FOR STUDY: PAIN Increased pain proximal humeral joint 2-3 mths, NKI FINDINGS: Four views submitted without comparison. No acute fracture. Alignment is normal. Mild glenohumeral and moderate acromioclavicular joint osteoarthritis. Sternotomy wires noted. IMPRESSION: Mild left glenohumeral and moderate acromioclavicular jointosteoarthritis. THIS IS AN ELECTRONICALLY VERIFIED FINAL REPORT 03/29/2025 8:07 PM - Electronically signed by Lucho Hays M.D. T: Report ID: [id number] Reading Location: [id number] Lm [place] IMRic XR PROCEDURES Fin al Result * Colonoscopy (07/21/2022) Anatomical Region Laterality Modality Other 07/21/2022 Historical Provider ENDOSCOPY PROCEDURES Alessia l Result from Last 3 Months or Most Recently Relevant to Health Maintenance Insurance [facility] MEDICARE BLUE CROSS MEDICARE SUPPLEMENT Advance Directives For more information, please contact: [phone] Documents on File Type Date Recorded Patient Library Services Assistant Expl anation Power of Hotel Night Auditor 05/04/2024 11:30 AM * Full Code (Latest Code Status on File) Date Activated Date Inactivated Comments 05/18/2024 10:45 AM 05/19/2024 2:15 PM Care Teams Tire Buster Relationship Specialty Start Date End Date Woody Fry DO [address] [facility] [address] [place] [address] PCP - General Internal Medicine 05/02/24 Aj López MD [address] [facility] [address] [place] [address] Consulting Physician Interventional Cardiology 04/19/24 Deidre Lomeli PA [address] [facility] [address] [place] [address] Orthopedic Surgery 05/18/24
--- OUTSIDE RECORDS SUMMARY | 2025-04-10 11:48 | XMS_ITS | Clinical Summary ---
Author Organization [facility] D Address [address] [place] [address] Care Team Providers Care Monogram Maker Name Role Phone Aj López MD Unavailable [phone] Woody Fry DO Primary Care Provider [phone] Deidre Lomeli Unavailable [phone] Allergies Active Allergy Reactions Criticality Noted Date [...] a PT script today to bring into [facility] outpatient physical therapy as we are unable [...] zetia Assessment & Plan (10/04/2019 1:26 PM SUPERVISOR PUBLICATIONS): His lipid profile today demonstrates a cholesterol [...] goal Assessment & Plan (10/05/2018 2:30 PM SUPERVISOR PUBLICATIONS): . SCRIBED Cholesterol, Total l - h [...] artery disease of n ative artery of [place] heart with stable angina pectoris 06/13/2013 Overview (11/09/2019): CAD, [place] Vessel Assessment & Plan (05/03/2023 10:14 AM [...] negative Assessment & Plan (10/04/2019 1:30 PM SUPERVISOR PUBLICATIONS): He remains asymptomatic so I made no [...] up Assessment & Plan (10/05/2018 2:26 PM SUPERVISOR PUBLICATIONS): 1.No diagnostic ST changes. 2.Global left ventricular [...] Date Resolved Date Arthritis of knee, left 05/18/2024 06/04/2024 Encounters Date Type Department Care Team Description 03/29/2025 2:15 PM CDT Office Visit [facility] Group Orthopedics and Sports Medicine [address] [place] [id number] Lm Gary PA Left shoulder pain, unspecified chronicity (Primary Dx); Primary osteoarthritis of left shoulder 03/29/2025 1:53 PM CDT - 03/29/2025 11:59 PM CDT Hospital Encounter [facility] Diag Imaging [address] [place] [address] Left shoulder pain, unspecified chronicity Discharge Disposition: Discharge to home or self care from Last 3 Months Immunizations Immunization Administration Dates Next Due Influenza [...] REMOVAL 07/16/2021 TOTAL KNEE ARTHROPLASTY 07/22/2021 Right 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 Never 05/18/2024 Do you belong to any clubs o r organizations such as episcopal groups, unions, fraternal or athletic groups, or [...] staff should administer the PHQ-9) 0 06/09/2023 [facility] [place] of Occupat ional Health - Occupational Stress [...] any time in the past 12 m [facility], were you homeless or living in a custodial (including now)? No 05/18/2024 Personal Safety Answer Date Recorded Have you ever been in or are you currently in a harmful physical or emotional relationship or is someone making you feel afraid or unsafe? 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 Not on file Not [...] 03/29/2025 2:46 PM CDT Plan of Treatment Health Maintenance Due Date Last Done Comments Hepatitis B Screening 1962 Zoster Vaccine (1 of 2) 1994 Pneumococcal vaccine 65+ (2 of 2 - PCV) 04/08/2013 04/08/2012 Depression Screening 06/09/2024 06/09/2023, 05/27/2022, 01/16/2021, Additional history exists Well Visit 65+ 06/09/2024 06/09/2023, 04/30, 01/16/2021 Covid-19 Vaccine ( season) 2024 03/11/2022, 08/28/2021, 01/23/2021, Additional history exists DTaP/Tdap/Td Vaccine (1 - Tdap) 05/06/2025 Postponed from 1955 (Patient declined, but will receive in the future) Fall Risk Assessment 05/19/2025 05/19/2024, 06/09/2023, 05/27/2022, Additional history exists Colon Cancer Screening-DNA Stool 07/21/2025 07/21/2022, 06/10/2022, 07/05/2018 Influenza Vaccine (Season Ended) 2025 08/29/2022, 09/10/2021, 08/29/2021, Additional history exists Colon Cancer Screening-CT Colonography Discontinued 07/21/2022 Colon Cancer Screening-Colonoscopy Discontinued 07/21/2022 Colon Cancer Screening-FIT Discontinued 07/21, 06/10/2022, 07/05/2018 Colon Cancer Screening-Sigmoidoscopy Discontinued 07/21/2022 Medical Devices Implanted Type Area Buildings And Grounds Coordinator Device Identifier Shelf Expiration Date Model / Serial / Lot Right Total Knee Replacement Right: Knee [employer] Tibial Baseplate Knee Porous Left Fixed Keel Persona [place] Size F Titanium [id number] - [id number] Implanted:Qty: 1 on 05/18/2024 by Kike Centeno DO at [facility] Left: Knee [employer] [id number] 02/10/2034 [id number] / / [id number] [employer] Component Femoral Knee Porous Cr Standard Left Persona Pps Size 10 [place] Chromium [id number] - [id number] Implanted:Qty: 1 on 05/18/2024 by Kike Centeno DO at [facility] Left: Knee [employer] [id number] 02/01/2034 [id number] / / [id number] [employer] Persona 10mm Knee Left 8-11 E-F Insert Articular Vivacit-E [id number] - [id number] Implanted:Qty: 1 on 05/18/2024 by Kike Centeno DO at [facility] Left: Knee [employer] [id number] 12/14/2028 [id number] / / [id number] Procedures Procedure Name Priority Date/Time Associated Diagnosis Comments IN ARTHROCENTESIS ASPIR&/INJ MAJOR JT/BURSA W/O US Routine 03/29/2025 2:15 PM CDT Left shoulder pain, unspecified chronicity Primary osteoarthritis of left shoulder XR SHOULDER LEFT 2 OR MORE VIEWS Schedule Routine, Read Routine (OP Routine) 03/29/2025 2:00 PM CDT Left shoulder pain, unspecified chronicity COLONOSCOPY Routine 07/21/2022 from Last 3 Months or Most Recently Relevant to Health Maintenance Results * IN ARTHROCENTESIS ASPIR&/INJ MAJOR JT/BURSA W/O US (03/29/2025 2:15 PM CDT) Narrative Panfilo Rolle MD - 03/29/2025 2:15 PM CDT Panfilo Rolle MD 03/29/2025 8:15 PM Large Joint (Hip, Knee, Shoulder) Injection: L subacromial bursa Performed by: Lm Gary PA Authorized by: Lm Gary PA Large Joint Injection/Aspiration: Consent Given by: [...] the procedure well with no immediate complications Lm [place] IN CLINIC/BEDSIDE ORD ERABLES Final [...] by Lucho Hays M.D. T: Report ID: [id number] Reading Location: [id number] Procedure Note Lucho Hays MD - 03/29/2025 [...] by Lucho Hays M.D. T: Report ID: [id number] Reading Location: [id number] Lm [place] IMG XR PROCEDURES Fin al Result * Colonoscopy (07/21/2022) Anatomical Region Laterality Modality Other 07/21/2022 us Historical Provider ENDOSCOPY PROCEDURES Alsesia rosen Result from Last 3 Months or Most Recently Relevant to Health Maintenance Insurance [facility] MEDICARE MEDICARE [place] CROSS MEDICARE SUPPLEMENT Advance Directives For more information, please contact: [phone] Documents on File Type Date Recorded Patient Tool Dispatcher Expl anation Power of Equipment Maintenance Supervisor 05/04/2024 11:30 AM * Full Code (Latest Code Status on File) Date Activated Date Inactivated Comments 05/18/2024 10:45 AM 05/19/2024 2:15 PM Care Teams Monogram Maker Relationship Specialty Start Date End Date Woody Fry DO [address] [facility] [address] [place] [address] PCP - General Internal Medicine 05/02/24 Aj López MD [address] [facility] [address] [place] [address] Consulting Physician Interventional Cardiology 04/19/24 Deidre Lomeli PA [address] [facility] [address] [place] [id number] Orthopedic Surgery 05/18/24
--- OUTSIDE RECORDS SUMMARY | 2025-04-10 11:48 | XMS_ITS | Clinical Summary ---
Author Organization [facility] Address [facility]ly [facility] [place] [address] Care Team Providers Care Corn Grower Name Role Phone Woody Wu MD Primary Care Provider [phone] Allergies No known active allergies Medications pravastatin [...] 1,000 mg by mouth daily. Active Glucos-Chondroi w-Klsdbl-Wogm (GLUCOSAMINE CHONDROIT-COLLA GEN) Cap Take 1 tablet by mouth 2 (two) times daily. Active HYDROcodone-saima taminophen (NORCO) 5-325 MG tablet Take 1 tablet by mouth every 6 (six) hours as needed. 08/31/2022 Active Active Problems Problem Noted Date Diagnosed Date Lumbar radiculopathy 09/16/2022 Overview (09/16/2022): Added automatically from request for surgery [id number] Family History Medical History Relation Comments Stent [...] CDT Gender Identity Male 11/21/2021 9:19 AM PIZZA CHEF Sexual Orientation Choose not to disclose 2020 9:19 AM PIZZA CHEF Last Filed Vital Signs Vital Sign Reading Time Taken Comments Blood Pressure 144/77 09/17/2022 9:17 AM CDT Pulse 81 09/17/2022 9:17 AM CDT Temperature 36.6 C (97.9 F) 09/17/2022 8:40 AM CDT Respiratory Rate 20 09/17/2022 9:17 AM CDT Oxygen Saturation 100% 09/17/2022 9:17 AM CDT Inhaled Oxygen Concentration - - Weight 73.1 kg (161 lb 3.2 oz) 09/17/2022 8:40 AM CDT Height 170.2 cm (5' 7 ) 09/17/2022 8:40 AM CDT Body Mass Index 25.25 09/17/2022 8:40 AM CDT Plan of Treatment Health Maintenance Due Date Last Done Comments DTaP, Tdap and Td Vaccines ( 1 - Tdap) 1963 Zoster Vaccines (1 of 2) 1994 Annual Medicare Wellness Visit 2009 Pneumococcal Vaccine: 50+ Years (2 of 2 - PCV) 04/08/2013 04/08/2012 RSV Immunization or 60+ Years (1 - 1-dose 75+ series) 2019 COVID-19 Vaccine (3 - 2023-2 5 season) 2024 01/23/2021, 01/01/2021 PHQ-2 (Physician [place]) 11/29/2024 Meningococcal B Vaccine Aged Out No l onger eligible based on patient's age to complete this topic Meningococcal Vaccine Aged Out No cady anai eligible based on patient's age to complete this topic RSV Immunizations Under 20 Months Aged Out No longer eligible b ased on patient's age to complete this topic Insurance COMBINED INSURANCE MEDICARE [facility] Care Teams Corn Grower Relationship Specialty Start Date End Date Woody Wu MD PCP - General FAMILY PRACTICE 06/28/20
--- OUTSIDE RECORDS SUMMARY | 2025-04-10 11:48 | XMS_ITS | Encounter Summary ---
Author Organization [facility] Address [address] [place] [address] Care Team Providers Care Supervisor Ship Maintenance Services Name Role Phone Woody Wu MD Primary Care Provider [phone] Reason for Referral * Surgical (Routine) - Closed Specialty Diagnoses / Procedures Referred By Yaw castro Referred To Contact Diagnoses Lumbar radiculopathy Procedures Case request operating room: INJECTION EPIDURAL TRANSFORAMINAL L4-5, L5-S1 Ev Burgess APNP Phone: tel: fax: Referral ID Status Reason Start Date Expiration Date Visits Re quested Visits Authorized [id number] Closed 09/15/2022 09/15/2023 1 1 Encounter Details Date Type Department Care Team (Late st Contact Info) Description 09/15/2022 Prep for Procedure [facility] [place] [address] [id number] Ev Burgess APNP [address] [place] [phone] Social History Tobacco Use Types Packs/Day Years Used Date Smoking Tobacco: Never Smokeless Tobacco: Never Alcohol Use Standard Drinks/Week Comments Yes 0 (1 standard drink = 0.6 oz pur e alcohol) socially Sex and Gender Information Value Date Recorded Sex Assigned at Not on file Legal Sex Male 8:14 PM CDT Gender Identity Male 11/21/2021 9:19 AM WAX BALL MOLDER Sexual Orientation Choose not to disclose 2020 9:19 AM WAX BALL MOLDER COVID-19 Exposure Response Date Recorded In the last 10 days, have yo u been in contact with someone who was confirmed or suspected to have Coronavirus/COVID-19? No / Unsure 09/17/2022 8:23 AM CDT documented as of this encounter Functional Status * Calculated C-SSRS Risk Score (Lifetime/Recent) Answer Date of Assessment Author Status No Risk Indicated 09/17/2022 8:34 AM CDT Patricio Dimas i, RN Active * [place] Suicide Severity Rating Scale (Screener/Recent Self-Report) Question Answer Date of Assessment Author Status 1. Wish to be (Past 1 Month) No 09/17/2022 8:34 AM CDT Edwardo Dimas RN Acti ve 2. Non-Specific Active Suicidal Thoughts (Past 1 Month) No 09/17/2022 8:34 AM CDT Edwardo Dimas RN Acti ve 6. Suicidal Behavior (Lifetime) No 09/17/2022 8:34 AM CDT Edwardo Dimas RN Acti ve documented as of this encounter Plan of [...] unspecified documented in this encounter Care Teams Supervisor Ship Maintenance Services Relationship Specialty Start Date End Date Woody Wu MD PCP - General FAMILY PRACTICE 06/28/20 documented as of this encounter
--- OUTSIDE RECORDS SUMMARY | 2025-04-10 11:48 | XMS_ITS | Clinical Summary ---
Author Organization [facility] Address [address] [place] [address] Care Team Providers Care New Patient Escort Name Role Phone Unavailable Primary Care Provider Unavailabl e Source Comments [facility],non-owned Affiliates and Associated Physician Practices is amultiple site organization consisting of ambulatory clinics and hospital sitesin [place], [place], [place] and [place]. This disclosure is being madepursuant to the Care Everywhere program and may not contain all information available regarding this patient. Last updated 18.[facility] [employer] Allergies Active Allergy Reactions Criticality Noted Date Comments Erythromycin Nausea and/or Vomiting 07/07/2021 Medications * Be aware that medications may not be up to date on this document. Alwaysverify current medications with the patient. diclofenac sodium EC (VOLTAREN) 50 MG tablet Take 50 mg by mouth 1 Active pravastatin (PRAVACHOL) 80 MG tablet Take 1 tablet by mouth once daily 0 Active ezetimibe (ZETIA) 10 MG tablet Take 1 tablet by mouth once daily 0 Active dilTIAZem ER 24hr (TIAZAC) 120 MG capsule Take 1 capsule by mouth once daily 0 Active Flaxseed, Linseed, (FLAX SEED OIL) 1000 MG Take 1,000 mg by mouth once daily Active zinc gluconate 50 MG tablet Take 50 mg by mouth once daily Active sodium hyaluronate (HEALON) 10 MG/ML intraocular solution Active Glucos-Chondroit -Collag-Hyal (GLUCOSAMINE CHONDROIT-COLLAG EN) CAPS Take 1 tablet by mouth 2 [...] hours as needed for Pain 12 tablet 1 Active sennosides (SENOKOT) 8.6 MG tablet Take 8.6 mg by mouth once daily 1 Active oxyCODONE, immediate release, (ROXICODONE) 5 MG tablet Take 5 mg by mouth every 4 hours as needed 1 Active meloxicam (MOBIC) 7.5 MG tablet Take 7.5 mg by mouth 2 times daily 1 Active acetaminophen (TYLENOL) 500 MG tablet Take 500 mg by mouth 4 times daily 1 Active Polyethylene Glycol 400 0.25 % 1 drop by Ophthalmic route every 24 hours as needed Active Restasis 0.05 % ophthalmic suspension INSTILL ONE DROP INTO EACH EYE TWICE DAILY 2 Active diclofenac sodium EC (Voltaren) 50 MG tablet Take 50 mg by mouth 2 times daily as needed 2 Active dilTIAZem coated beads 24hr (Cardizem CD) 120 MG capsule 2 Active Active Problems Problem Noted Date Diagnosed [...] 81 08/31/2022 2:01 PM CDT Temperature 36.3 C (97.4 F) 08/31/2022 2:01 PM CDT Respiratory Rate 18 08/31/2022 2:01 PM CDT Oxygen Saturation 96% 08/31/2022 2:01 PM CDT Inhaled Oxygen Concentration - - Weight 70.8 kg (156 lb) 08/31/2022 2:01 PM CDT Height 170.2 cm (5' 7 ) 08/31/2022 2:01 PM CDT Body Mass Index 24.43 08/31/2022 2:01 PM CDT Plan of Treatment Health Maintenance Due Date Last Done Comments MEDICARE AWV 12 MONTHS 1944 DTAP/TDAP/TD VACCINES (1 - Tdap) 1963 PNEUMOCOCCAL VACCINE 50+ (1 of 1 - PCV) 1994 ZOSTER VACCINE (1 of 2) 1994 Respiratory Syncytial Virus (RSV) Vaccine Pt: or over 60 yrs (1 - 1-dose 75+ series) 2019 COVID-19 VACCINE (3 - season) 2024 01/23/2021, 01/01/2021 DEPRESSION SCREENING 11/29/2024 INFLUENZA VACCINE (Season Ended) 2025 08/29/2022, 08/29/2021, 09/21/2018, Additional history exists HEPATITIS B VACCINE Aged Out No longe r eligible based on patient's age to complete this topic HIB VACCINE Aged Out No longer eligi ble based on patient's age to complete this topic HPV VACCINE Aged Out No longer eligi ble based on patient's age to complete this topic MENINGOCOCCAL (Group B) VACCINE SHARED DECISION-MAKING Aged Out No longer eligible based on patient's age to complete this topic MENINGOCOCCAL GROUPS A/C/Y/W VACCINE Aged Out No longer eligible based on patient's age to complete this topic Insurance MEDICARE ANTHEM MEDICARE MEDICARE SUPPLEMENT PAYOR GENERIC
--- OUTSIDE RECORDS SUMMARY | 2025-04-10 11:48 | XMS_ITS | Encounter Summary ---
Author Organization [facility] Care Team Providers Care Die Maker Stamping Name Role Phone Woody Wu MD Primary Care Provider [phone] Marquita Valentino LPN Unavailable [phone] Aj López MD Unavailable [phone] No, Physician Primary Care Provider [phone] Woody Fry DO Primary Care Provider [phone] Deidre Lomeli Unavailable [phone] Encounter Details Date Type Department Care Team (Latest Contact Info) Description 06/24/2018 Orders Only [facility] CLINCONV ProviderAyaz MD [address] [place] [address] Social History Tobacco Use Types Packs/Day Years Used Date Smoking Tobacco: Never Smokeless Tobacco: Never Alcohol Use Standard Drinks/Week Comments Yes 0 (1 standard drink = 0.6 oz pur e alcohol) Sex and Gender Information Value Date Recorded Sex Assigned at Not on file Legal Sex Male 3:45 PM CAREER SERVICES ASSISTANT Gender Identity Not on file Sexual Orientation [...] on filedocumented in this encounter Care Teams Die Maker Stamping Relationship Specialty Start Date End Date Woody Wu MD PCP - General 02/26/17 04/18/24 No, Physician PCP - General 04/20/24 05/01/24 Woody Fry DO PCP - General Internal Medicine 05/02/24 Marquita Valentino LPN Manager Supply Chain 11/01/19 11/01/19 Aj López MD [address] [place] [address] Consulting Physician Interventional Cardiology 04/19/24 Deidre Lomeli PA [address] [place] [address] [place] [id number] Orthopedic Surgery 05/18/24 documented as of this encounter
[2025-04-10 13:15] LABS: Basophils Absolute Auto 0.1 K/mm3 (0.0-0.1); Basophils Percent Auto 0.8 % (0.2-1.2); Eosinophils Absolute Auto 0.2 K/mm3 (0-0.3); Eosinophils Percent Auto 2.4 % (0-4.4); Hematocrit 44.7 % (42.0-52.0); Hemoglobin 13.3 g/dL (14.0-18.0); Immature Granulocyte Absolute 0.03 K/mm3 (0.00-0.031); Immature Granulocyte Percent A 0.5 % (0-0.5); Lymphocytes Absolute Auto 0.89 K/mm3 (0.9-3.2); Lymphocytes Percent Auto 14.2 % (18.3-44.2); Mean Corpuscular HGB Conc 29.8 g/dl (32-36); Mean Corpuscular Hemoglobin 24.3 pg (26-34); Mean Corpuscular Volume 81.6 fl (80-100); Mean Platelet Volume 9.8 fl (7.4-10.4); Monocytes Absolute Auto 0.6 K/mm3 (0.1-0.6); Monocytes Percent Auto 9.4 % (2.6-8.5); Neutrophils Absolute Auto 4.6 K/mm3 (1.3-6.7); Neutrophils Percent Auto 72.7 % (45.5-73.1); Platelet Count Result 232 k/mm3 (150-375); Red Blood Count 5.48 M/mm3 (4.6-6.20); Red Cell Distribution Width 16.5 % (11.5-14.5); White Blood Count 6.3 K/mm3 (4.5-10.0)
[2025-04-10 13:28] LABS: Alanine Aminotransferase 30 U/L (6-50); Albumin Level 4.5 g/dL (3.5-5.1); Alkaline Phosphatase 75 U/L (38-126); Anion Gap 9 mmol/L (4-12); Aspartate Amino Transferase 38 U/L (17-59); Bilirubin,Total 0.4 mg/dL (0.2-1.3); Blood Urea Nitrogen 26 mg/dL (9-20); Calcium 9.5 mg/dL (8.4-10.2); Carbon Dioxide 27 mmol/L (22-30); Chloride 105 mmol/L (98-107); Estimated Glomerular Filt Rate > 60; Glucose 81 mg/dL (65-110); Potassium 4.4 mmol/L (3.4-5.0); Sodium 141 mmol/L (137-145)
[2025-04-10 15:12] LABS: Anisocytosis 1+; Burr Cells 1+; Ovalocytes 1+; Platelet Estimate Adequate (Adequate); Schistocytes None Seen
[2025-04-10 18:09] LABS: Free T3 2.66 pg/mL (2.34-5.61); Iron 39 ug/dL (49-181); Percent Iron Saturation 8 % (20-50)
[2025-04-10 18:52] LABS: Ferritin 3.82 ng/mL (11.1-264)
== END 2025-04-10 11:30 | disposition home or self-care (01) ==
LOC: ANHGOSHLAB 11:29
PROVIDERS: PCP Clinical Nurse Specialist; Visit Provider Clinical Nurse Specialist
DX: R79.89 Other specified abnormal findings of blood chemistry (principal); R74.8 Abnormal levels of other serum enzymes; D50.9 Iron deficiency anemia, unspecified
CPT/HCPCS: 36415; 80053; 82728; 83540; 83550; 84443; 84481; 85025

== ENCOUNTER 2025-04-30 10:47 | Emergency (ER) | payer MEDICARE, SELFPAY ==
--- NOTE | 2025-04-30 10:53 | ED_ITS ---
HPI - URI/Sore Throat General Chief Complaint: Upper Respiratory Infection Stated Complaint: Cough/Drainage/SOB Source: patient Mode of arrival: ambulatory Limitations: no limitations History of Present Illness HPI Narrative: Patient is an 79 year old male who presents to the clinic with complaints of nasal congestion and a cough x 10 days. He has been taking Mucinex over the counter, but has had minimal relief. Endorses that he has some shortness of breath with exertion. Denies any difficulty swallowing, nausea, vomiting, diarrhea, or fevers. Related Data Home Medications ?Medication ?Instructions ?Recorded ?Confirmed ?Last Taken ?Type cyclosporine 0.05 % eye drops in a 1 drp EACH EYE BID 08/27/22 04/30/25 12/27/24 History dropperette (Restasis) diltiazem HCl 120 mg 120 mg PO DAILY 08/27/22 04/30/25 12/27/24 History capsule,extended release 24 hr ezetimibe 10 mg tablet (Zetia) 10 mg PO DAILY 08/27/22 04/30/25 12/27/24 History pravastatin 80 mg tablet 80 mg PO DAILY 08/27/22 04/30/25 12/27/24 History ascorbate calcium (vitamin C) 500 500 mg PO DAILY 09/21/23 04/30/25 12/27/24 History mg tablet aspirin 81 mg tablet,delayed 81 mg PO DAILY 09/21/23 04/30/25 12/27/24 History release (Adult Aspirin Regimen) coenzyme Q10 30 mg capsule (Co 30 mg PO DAILY 09/21/23 04/30/25 12/27/24 History Q-10) glucosamine 750 mg-MSM 60 1 tablet PO DAILY 09/21/23 04/30/25 12/27/24 History mg-chondroit 150 mg-hyaluron ac 1 mg tablet multivitamin 1 tablet PO DAILY 09/21/23 04/30/25 12/27/24 History flaxseed oil 1,000 mg capsule 1,000 mg PO DAILY 12/14/24 04/30/25 12/27/24 History Allergies Allergy/AdvReac Type Severity Reaction Status Date / Time erythromycin base Allergy Unknown Verified 04/30/25 10:54 Review of Systems Review of Systems: CONSTITUTIONAL: Denies body aches, fever, chills, or sweats. Reports EYES: Denies visual changes, redness, or discharge. ENT: Reports rhinorrhea and congestion. Denies sore throat or otalgia. CARDIOVASCULAR: Denies chest pain, palpitations, or edema. RESPIRATORY: Reports cough or dyspnea. GASTROINTESTINAL: Denies abdominal pain, nausea, vomiting, or diarrhea. GENITOURINARY: Denies dysuria or hematuria. SKIN: Denies rash, itching, or wounds. MUSCULOSKELETAL: Denies back pain, joint pain, or myalgia. NEUROLOGIC: Denies headache, numbness, tingling, or weakness. PSYCH: Denies depression or anxiety. All systems reviewed & are unremarkable except as noted in HPI and below PMFSH Past Medical History Medical History High cholesterol Family History Family History Father Asthma Heart disease Mother Diabetes mellitus Hypertension Cerebrovascular accident Sibling Diabetes mellitus Hypertension Heart disease Social History Social History Social History: Caffeine-daily Smoking status: Never smoker Alcohol intake: current Drinks per week: 5 Alcohol use details: moderate Substance use: never Substance use type: does not use Lack of Transportation: No Lack of Food: Never True Current Housing: I Have Housing Concerned About Future Housing: No Difficulty Paying Gas/Electric Bills: No Difficulty Paying for Meds: No Currently Unemployed: No Education: Bachelor's Degree Difficulty w/ Childcare or Family Care: No Living arrangements: with family Spiritual care concerns: No Comments At time of signature, I have reviewed and agree with nursing past medical, surgical, social and family history unless otherwise noted. Please see nursing chart for further information. There is no relevant family history pertinent to the presenting complaint. Exam Narrative: GENERAL: Well-appearing, well-nourished, and in no acute distress. EYES: EOMI. No redness or drainage. Conjunctivae normal. ENT: Mucous membranes pink and moist. Nares clear. TMs fluid filled, but int act. No Throat Erythema or tonsillar exudate, uvula midline. Nasal congestion noted. NECK: Normal AROM. Supple. No lymphadenopathy. CHEST: No respiratory distress. Wheezing noted throughout on expiration to auscultation. HEART: Regular rate and rhythm. No murmur appreciated. Normal peripheral pulses. ABDOMEN: Soft, nontender, nondistended, normal active bowel sounds. SKIN: Warm, dry, no rash. Capillary refill normal. Normal skin turgor. NEURO: No focal deficits. Alert and oriented x3. Gait steady. PSYCH: Normal affect. No signs of depression or anxiety. Course Course Level of Care: Express Care Visit MDM - URI/Sore Throat MDM Narrative Medical decision making narrative: Discussed physical exam findings. Antibiotic given for sinusitis. Albuterol and steroid given for inflammation. Advised supportive measures and signs/symptoms to go to the ER. Pt is appropriate for outpt treatment and follow up. Differential Diagnosis Differential diagnosis: Likely upper respiratory infection, sinusitis, viral infection and bronchitis Critical Care Time Critical Care Time Critical Care Time: No Discharge Plan Discharge Clinical Impression: Sinobronchitis Patient Disposition: Home Condition: Stable Instructions: Antibiotic Form, Sinusitis (ED), Acute Bronchitis (ED) Additional Instructions: Take antibiotic as prescribed. Take steroid as prescribed. Recommend Flonase spray and Zyrtec (or Claritin/Kay) over the counter Cough syrup may cause drowsiness; avoid driving or take it at night time. Tylenol 1000mg every 8 hours as needed for pain Symptomatic treatment includes: rest, fluids, and increase humidity of the air at home. Follow up with your primary care provider in 1 week. Go to the ER for worsening symptoms or concerns. Patient Language: Citizen Of [place] Prescriptions: New prednisone 20 mg tablet See Rx Instructions .Route .COMPLEX Qty: 9 0RF Rx Instructions: 40mg x 3 days, 20mg x 3 days amoxicillin 875 mg tablet 875 mg PO Q12H 7 Days Qty: 14 0RF albuterol sulfate [Ventolin HFA] 90 mcg/actuation HFA aerosol inhaler 2 puff inhalation QID PRN (Reason: shortness of breath or wheezing) Qty: 6.7 0RF No Action pravastatin 80 mg tablet 80 mg PO DAILY diltiazem HCl 120 mg capsule,extended release 24hr 120 mg PO DAILY cyclosporine [Restasis] 0.05 % dropperette 1 drp EACH EYE BID ezetimibe [Zetia] 10 mg Tablet 10 mg PO DAILY finasteride 1 mg tablet 1 mg PO DAILY Qty: 30 0RF aspirin [Adult Aspirin Regimen] 81 mg tablet,delayed release (DR/EC) 81 mg PO DAILY multivitamin Tablet 1 tablet PO DAILY coenzyme Q10 [Co Q-10] 30 mg capsule 30 mg PO DAILY ascorbate calcium (vitamin C) 500 mg tablet 500 mg PO DAILY izhogbyb-dkz-coujv-hyaluron ac [id number] mg tablet 1 tablet PO DAILY flaxseed oil 1,000 mg capsule 1,000 mg PO DAILY Follow-up/Referrals: Dagmar Bains, FRONT OFFICE ASSOCIATE-C [Primary Care Provider] - Time of Disposition: 11:04
[2025-04-30 10:56] VITALS: BP 144/75; PULSE 71; RESP 16; TEMP 36.4; O2SAT 97
== END 2025-04-30 11:07 | disposition home or self-care (01) ==
PROVIDERS: PCP Clinical Nurse Specialist
DX: J32.9 Chronic sinusitis, unspecified (principal); J40 Bronchitis, not specified as acute or chronic; E78.00 Pure hypercholesterolemia, unspecified; Z79.82 Long term (current) use of aspirin
CPT/HCPCS: 99213; G0463

== ENCOUNTER 2025-05-08 10:26 | Outpatient (CLI) | payer MEDICARE, SELFPAY ==
--- NOTE | ~2025-05-08 | XR_ITS ---
Clinical Indication: Shortness of breath PA and lateral views of the chest: Comparison: None Findings: The lungs are clear, without evidence of focal consolidation or pleural effusion. Cardiome diastinal silhouette is within normal limits. Bones and soft tissues are unremarkable. Impression: Normal chest. Reviewed, dictated and finalized at [facility]. Impression: Normal chest.
== END 2025-05-08 10:27 | disposition home or self-care (01) ==
LOC: GOSHIMG 10:27
PROVIDERS: PCP Clinical Nurse Specialist; Visit Provider Clinical Nurse Specialist
DX: R06.02 Shortness of breath (principal); R05.9 Cough, unspecified
CPT/HCPCS: 71046

== ENCOUNTER 2025-06-20 10:01 | Outpatient (CLI) | payer MEDICARE, SELFPAY ==
--- OUTSIDE RECORDS SUMMARY | 2025-06-20 10:09 | XMS_ITS | Encounter Summary ---
Author Organization [facility] Care Team Providers Care Conditioner Tumbler Operator Name Role Phone Woody Wu MD Primary Care Provider [phone] Marquita Valentino LPN Unavailable [phone] Aj López MD Unavailable [phone] No, Physician Primary Care Provider [phone] Woody Fry DO Primary Care Provider [phone] Deidre Lomeli Unavailable [phone] Encounter Details Date Type Department Care Team (Latest Contact Info) Description 06/24/2018 Orders Only [facility] CLINCONV ProviderAyaz MD [address] [place] [address] Social History Tobacco Use Types Packs/Day Years Used Date Smoking Tobacco: Never Smokeless Tobacco: Never Alcohol Use Standard Drinks/Week Comments Yes 0 (1 standard drink = 0.6 oz pur e alcohol) Sex and Gender Information Value Date Recorded Sex Assigned at Not on file 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 Gender Identity Not on file Sexual Orientation [...] on filedocumented in this encounter Care Teams Conditioner Tumbler Operator Relationship Specialty Start Date End Date Woody Wu MD PCP - General 02/26/17 04/18/24 No, Physician PCP - General 04/20/24 05/01/24 Woody Fry DO PCP - General Internal Medicine 05/02/24 Marquita Valentino LPN Supervisor Stave Finishing 11/01/19 11/01/19 Aj López MD [address] [facility] [place] [address] Consulting Physician Interventional Cardiology 04/19/24 Deidre Lomeli PA [address] [place] [address] Orthopedic Surgery 05/18/24 documented as of this encounter
--- OUTSIDE RECORDS SUMMARY | 2025-06-20 10:09 | XMS_ITS | Clinical Summary ---
Author Organization [facility] Address [facility] [place] [address] Care Team Providers Care Stack Clerk Name Role Phone Woody Wu MD Primary Care Provider [phone] Allergies No known active allergies Medications pravastatin [...] 1,000 mg by mouth daily. Active Glucos-Chondroi r-Myetcz-Fiqd (GLUCOSAMINE CHONDROIT-COLLA GEN) Cap Take 1 tablet by mouth 2 (two) times daily. Active HYDROcodone-saima taminophen (NORCO) 5-325 MG tablet Take 1 tablet by mouth every 6 (six) hours as needed. 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 Sexual Orientation Choose not to disclose 2020 9:19 AM RIPRAP PLACER Last Filed Vital Signs Vital Sign Reading [...] A M CDT Height 170.2 cm (5' 7) 09/17/2022 8:40 AM CDT Body Mass Index [...] 5 season) 2024 01/23/2021, 01/01/2021 PHQ-2 (Physician [place]) 11/29/2024 Meningococcal B Vaccine Aged Out No l onger eligible based on patient's age to complete this topic Meningococcal Vaccine Aged Out No cady anai eligible based on patient's age to complete this topic RSV Immunizations Under 20 Months Aged Out No longer eligible b ased on patient's age to complete this topic Insurance COMBINED INSURANCE MEDICARE [facility] Care Teams Stack Clerk Relationship Specialty Start Date End Date Woody Wu MD PCP - General FAMILY PRACTICE 06/28/20
--- OUTSIDE RECORDS SUMMARY | 2025-06-20 10:09 | XMS_ITS | Encounter Summary ---
Author Organization [facility] Address [address] [place] [address] Care Team Providers Care Water Vessel Captain Name Role Phone Unavailable Primary Care Provider Unavailabl e Encounter Details Date Type Department Care Team ([facility] Contact Info) Description 06/20/2025 9:15 AM CDT Office Visit [facility] Oncology and Hematology - Jose [address] [facility] [address] [place] [address] Chivo Robert MD [address] [place] [address] Chronic anemia (Primary Dx) Social History Tobacco Use Types Packs/Day Years Used Date Smoking Tobacco: Never Smokeless Tobacco: Never Tobacco Cessation:Counseling Given: Not Answered Alcohol Use Standard Drinks/Week Comments Yes 0 (1 standard drink = 0.6 oz pur e alcohol) occasional Sex and Gender Information Value Date Recorded Sex Assigned at Not on file Legal Sex Male 3:47 PM CDT Gender Identity Not on file Sexual Orientation Not on file documented as of this encounter Last Filed Vital Signs Vital Sign Reading Time Taken Comments Blood Pressure 139/80 06/20/2025 9:27 AM CDT Pulse 63 06/20/2025 9:27 AM CDT Temperature 36.1 C (96.9 F) 06/20/2025 9:27 AM CDT Respiratory Rate 16 06/20/2025 9:27 AM CDT Oxygen Saturation 96% 06/20/2025 9:27 AM CDT Inhaled Oxygen Concentration - - Weight 77.8 kg (171 lb 9.6 oz) 06/20/2025 9:27 A M CDT Height 170.2 cm (5' 7) 06/20/2025 9:27 AM CDT Body Mass Index 26.88 06/20/2025 9:27 AM CDT documented in this encounter Plan of Treatment Upcoming Encounters Date Type Department Care Team ([facility] Contact Info) Description 07/04/2025 4:30 PM CDT Telephone Check Up [facility] Oncology and Hematology - [place] [address] [place] [address] Chivo Robert MD [address] [facility] [address] [address] [place] [address] Scheduled Orders Name Type Priority Associated Diagnoses Orde r Schedule CBC WITH DIFFERENTIAL Lab Stat Chronic anemia Expected: 06/20/2025, Expires: 06/20/2026 COMPREHENSIVE METABOLIC PANEL Lab Stat Chronic anemia Expected: 06/20/2025, Expires: 06/20/2026 FERRITIN Lab Routine Chronic anemia Expected: 06/20/2025, Expires: 06/20/2026 IRON, TIBC, AND PERCENT SATURATION Lab Routine Chronic anemia Expected: 06/20/2025, Expires: 06/20/2026 METHYLMALONIC ACID Lab Routine Chronic anemia Expected: 06/20/2025, Expires: 06/20/2026 TRANSFERRIN RECEPTOR TFR SOLUBLE Lab Routine Chronic anemia Expected: 06/20/2025, Expires: 06/20/2026 VITAMIN B12 AND FOLATE Lab Routine Chronic anemia Expected: 06/20/2025, Expires: 06/20/2026 documented as of this encounter Visit Diagnoses Diagnosis Chronic anemia- Primary Anemia, unspecified documented in this encounter
--- OUTSIDE RECORDS SUMMARY | 2025-06-20 10:09 | XMS_ITS | Encounter Summary ---
Author Organization [facility] Address [address] [place] [address] Care Team Providers Care Director Of Instructional Technology Name Role Phone Unavailable Primary Care Provider Unavailabl e Encounter Details Date Type Department Care Team (Late st Contact Info) Description 06/27/2021 Lab Requisition [facility] [address] [place] [address] Alex Mercedes MD [address] [place], [place] [phone] Social History Tobacco Use Types Packs/Day Years [...] AM CDT) Case Report Dermatopathology Report Case: [id number] Authorizing Provider: Alex Mercedes MD Collected: 06/25/2021 12:00 AM Ordering Location: [facility] Received: 06/27/2021 09:38 AM Pathologist: Luzmaria Zavala MD Specimen: Skin, right post neck 6:42 PM CDT DERMATOPATHOLOGY LABORATORY Final Diagnosis Specimen A. 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 Rach Grissom. These tests need not be, and therefore are not, approved by the [place] Food and Drug Administration. The tests are used for clinical purposes. Billing Codes Specimen Charges Stain Charges 55826 1 00086 1 1 6:42 PM CDT DERMATOPATHOLOGY LABORATORY Embedded Images 6:42 PM CDT DERMATOPATHOLOGY LABORATORY Pathology/Cytolog y TISSUE SPECIMEN FROM SKIN / Unknown 06/25/2021 06/27/2021 9:38 AM CDT us Alex Mercedes MD LAB - PATHOLOGY/CYTOLOGY ORDERAB LES Final Result DERMATOPATHOLOGY LABORATORY [facility] - Department of Dermatology [address], [address] [phone] documented in this encounter Visit Diagnoses Not on filedocumented in this encounter
--- OUTSIDE RECORDS SUMMARY | 2025-06-20 10:09 | XMS_ITS | Referral Summary ---
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); Primary hypertension 03/29/2025 1:53 PM CDT - 03/29/2025 11:59 PM CDT Hospital Encounter [facility] Diag Imaging [facility] [place] [address] Left shoulder pain, unspecified chronicity Discharge Disposition: Discharge to home or self care 03/29/2025 2:15 PM CDT Office Visit [facility] Medical Group Orthopedics and Sports Medicine [facility] [address] [place] [address] Lm Gary PA Left shoulder pain, unspecified chronicity (Primary Dx); Primary osteoarthritis of left shoulder from Last 3 Months Allergies Active Allergy Reactions Criticality Noted Date Comments Erythromycin Stomach upset,Nausea And Vomiting Low 07/07/2021 Patient states upset stomach. Medications ascorbic acid, vitamin C, (VITAMIN C) 500 mg capsule, extended release CR capsule take 1 tablet by mouth once daily 0 0 10/22/20 15 Active cycloSPORINE (RESTASIS) 0.05 % ophthalmic emulsion Administer 1 drop into both eyes 2 (two) times a day Active ezetimibe (ZETIA) 10 mg tablet TAKE 1 TABLET BY MOUTH EVERY DAY 30 tablet 11 12/28/19 25 Active aspirin 81 mg chewable tablet Take 1 tablet (81 mg total) by mouth daily Active multivitamin tabletIndicati ons:Vitamin Deficiency Prevention Take 1 tablet by mouth Active pravastatin (PRAVACHOL) 80 mg tablet TAKE 1 TABLET BY MOUTH EVERY DAY 90 tablet 06/18/20 25 Active dilTIAZem CD/XR/XT (dilTIAZem CD) 120 mg 24 hr capsule TAKE 1 CAPSULE BY MOUTH EVERY DAY 90 capsule 06/18/20 25 Active coenzyme Q10 30 mg capsule Take 1 capsule (30 mg total) by mouth daily Active dilTIAZem CD/XR/XT (Cartia XT) 120 mg 24 hr capsule TAKE 1 CAPSULE BY MOUTH EVERY DAY 90 capsule 3 05/24/20 24 025 Discontinued pravastatin (PRAVACHOL) 80 mg tablet Take 1 tablet (80 mg total) by mouth daily 90 tablet 3 06/19/20 24 025 Discontinued Active Problems Problem Noted Date Diagnosed Date [...] a PT script today to bring into [facility] outpatient physical therapy as we are unable [...] 12/02/2016 HTN (hypertension) 05/20/2016 Assessment & Plan (06/18/2025 11:17 AM CDT): Adequately controlled -- continue diltiazem 120 Assessment & Plan (05/03/2023 10:15 AM CDT): [...] zetia Assessment & Plan (10/04/2019 1:26 PM DIRECTOR TARGETED MARKETING): His lipid profile today demonstrates a cholesterol [...] goal Assessment & Plan (10/05/2018 2:30 PM DIRECTOR TARGETED MARKETING): . SCRIBED Cholesterol, Total l - h [...] artery disease of n ative artery of chehalis heart with stable angina pectoris 06/13/2013 Overview (11/09/2019): CAD, [place]eller Vessel Assessment & Plan (06/18/2025 11:06 AM CDT): Screening remote bypass 2004, increasing exertional intolerance since his last appointment investigate for possible anginal equivalent - continue aspirin, statin and Zetia Assessment & Plan (05/03/2023 10:14 AM CDT): Screening remote bypass 2004, increasing exertional intolerance since his last appointment [...] negative Assessment & Plan (10/04/2019 1:30 PM DIRECTOR TARGETED MARKETING): He remains asymptomatic so I made no [...] up Assessment & Plan (10/05/2018 2:26 PM DIRECTOR TARGETED MARKETING): 1.No diagnostic ST changes. 2.Global left ventricular [...] drink = 0.6 oz pur e alcohol) [facility] Utilities Answer Date Recorded In the past 12 months has e electric, gas, oil, or water [employer] threatened to shut off services in your [...] often do you attend chur ch or jainism services? Never 05/18/2024 Do you belong to any clubs o r organizations such as adventism groups, unions, fraternal or athletic groups, or [...] staff should administer the PHQ-9) 0 06/09/2023 [facility] - Occupational [...] any time in the past [address] [facility], were you homeless or living in a detention (including now)? No 05/18/2024 Personal Safety Answer Date Recorded Have you ever been in or are you currently in a harmful physical or emotional relationship or is someone making you feel afraid or unsafe? 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 Not on file Not on file Last Filed Vital Signs Vital Sign Reading Time Taken Comments Blood Pressure 130/76 06/18/2025 11:06 AM CDT Pulse 76 06/18/2025 11:06 AM CDT Temperature 36.6 C (97.9 F) 05/19/2024 8:00 AM CDT Respiratory Rate 16 05/19/2024 8:00 AM CDT Oxygen Saturation 99% 06/18/2025 11:06 AM CDT Inhaled Oxygen Concentration - - Weight 77.1 kg (170 lb) 06/18/2025 11:06 AM CDT Height 170.2 cm (5' 7) 06/18/2025 11:06 AM CDT Body Mass Index 26.63 06/18/2025 11:06 AM CDT Plan of Treatment Not on file Medical Devices Implanted Type Area Dialysis Biomed Technician Device Identifier Shelf Expiration Date Model / Serial / Lot Right Total Knee Replacement Right: Knee [employer] Tibial Baseplate Knee Porous Left Fixed Keel Persona [place] Size F Titanium [id number] - [id number] Implanted:Qty: 1 on 05/18/2024 by Kike Centeno DO at [facility] Left: Knee [employer] [id number] 02/10/2034 [id number] / / [id number] [employer] Component Femoral Knee Porous Cr Standard Left Persona Pps Size 10 [place] Chromium [id number] - [id number] Implanted:Qty: 1 on 05/18/2024 by Kike Centeno DO at [facility] Left: Knee [employer] [id number] 02/01/2034 [id number] / / [id number] [employer] Persona 10mm Knee Left 8-11 E-F Insert Articular Vivacit-E [id number] - [id number] Implanted:Qty: 1 on 05/18/2024 by Kike Centeno DO at [facility] Left: Knee [employer] [id number] 12/14/2028 [id number] / / [id number] Procedures Procedure Name Priority Date/Time Associated Diagnosis Comments POCT LIPID PANEL Routine 06/18/2025 11:33 AM CDT 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 [place] ARTHROCENTESIS ASPIR&/INJ MAJOR JT/BURSA W/O US Routine 03/29/2025 2:15 PM CDT Left shoulder pain, unspecified chronicity Primary osteoarthritis of left shoulder XR SHOULDER LEFT 2 OR MORE VIEWS Schedule Routine, Read Routine (OP Routine) 03/29/2025 2:00 PM CDT Left shoulder pain, unspecified chronicity COLONOSCOPY Routine 07/21/2022 from Last 3 Months or Most Recently Relevant to Health Maintenance Results * POCT lipid panel (06/18/2025 11:33 AM CDT) Cholesterol, POC 137 <200 MG/DL HDL, POC 46 >=40 mg/dL Triglycerides, POC 132 <=149 mg/dL LDL Cholesterol POC 65 <=129 mg/dL Chol/HDL Ratio, POC 1.4 NONE Non-HDL Cholesterol, POC 91 NONE mg/dL Cholesterol Total, POC 137 30 - 199 mg/dL Capillary blood 06/18/2025 1 1:33 AM CDT us Aj López MD POINT OF CARE TEST ORDER MISTY Final Result * GA ARTHROCENTESIS ASPIR&/INJ MAJOR JT/BURSA W/O US (03/29/2025 [...] by Lucho Hays M.D. T: Report ID: [id number] Reading Location: [id number] Procedure Note Lucho Hays MD - 03/29/2025 [...] by Lucho Hays M.D. T: Report ID: [id number] Reading Location: [id number] Lm [facility] IMG XR PROCEDURES Fin al Result * Colonoscopy (07/21/2022) Anatomical Region Laterality Modality Other 07/21/2022 Historical Provider MD ENDOSCOPY PROCEDURES Alessia l Result from Last 3 Months or Most Recently Relevant to Health Maintenance Insurance [facility] MEDICARE MEDICARE [facility] MEDICARE SUPPLEMENT Advance Directives For more information, please contact: [phone] Documents on File Type Date Recorded Patient Biology Instructor Expl anation Power of Senior Net Architect 05/04/2024 11:30 AM * Full Code (Latest Code Status on File) Date Activated Date Inactivated Comments 05/18/2024 10:45 AM 05/19/2024 2:15 PM Care Teams Child Care Attendant Relationship Specialty Start Date End Date Woody Fry DO [address] [place] [address] PCP - General Internal Medicine 05/02/24 Aj López MD [address] [place] [address] Consulting Physician Interventional Cardiology 04/19/24 Deidre Lomeli PA [address] [place] [address] Orthopedic Surgery 05/18/24
--- OUTSIDE RECORDS SUMMARY | 2025-06-20 10:09 | XMS_ITS | Encounter Summary ---
Author Organization [facility] Facility Care Team Providers Care Work Ticket Distributor Name Role Phone Woody Wu MD Primary Care Provider [phone] Marquita Valentino LPN Unavailable [phone] Aj López MD Unavailable [phone] No, Physician Primary Care Provider [phone] Woody Fry DO Primary Care Provider [phone] Deidre Lomeli Unavailable [phone] Encounter Details Date Type Department Care Team (Latest Contact Info) Description 07/11/2018 Orders Only [facility] CLINCON[facility] ProviderAayz MD [address] [place] [address] Social History Tobacco Use Types Packs/Day Years Used Date Smoking Tobacco: Never Smokeless Tobacco: Never Alcohol Use Standard Drinks/Week Comments Yes 0 (1 standard drink = 0.6 oz pur e alcohol) Sex and Gender Information Value Date Recorded Sex Assigned at Not on file 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 [address] [place] [address] Orthopedic Surgery 05/18/24 documented as of this encounter
--- OUTSIDE RECORDS SUMMARY | 2025-06-20 10:09 | XMS_ITS | Clinical Summary ---
Author Organization [facility] D Address [address] [place] [address] Care Team Providers Care Right Of Way Man Name Role Phone Aj López MD Unavailable [phone] Woody Fry DO Primary Care Provider [phone] Deidre Lomeli Unavailable [phone] Allergies Active Allergy Reactions Criticality Noted Date [...] a PT script today to bring into [place] outpatient physical therapy as we are unable [...] week for x-rays and further evaluation with . Expressed understanding and agreement with the plan. [...] zetia Assessment & Plan (10/04/2019 1:26 PM FOREST FIRE LOOKOUT): His lipid profile today demonstrates a cholesterol [...] goal Assessment & Plan (10/05/2018 2:30 PM FOREST FIRE LOOKOUT): . 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); Primary hypertension 03/29/2025 2:15 PM CDT Office Visit [facility] Orthopedics and Sports Medicine [address] [facility] [address] [place] [address] Lm Gary PA Left shoulder pain, unspecified chronicity (Primary Dx); Primary osteoarthritis of left shoulder 03/29/2025 1:53 PM CDT - 03/29/2025 11:59 PM CDT Hospital Encounter [facility] Orthopedic and Neuro Center Diag Imaging [facility] [place] [address] Left shoulder pain, unspecified chronicity Discharge Disposition: [...] REMOVAL 07/16/2021 TOTAL KNEE ARTHROPLASTY 07/22/2021 Right [facility] Dr[facility] Mark Bustamante EYE SURGERY Right cataract [...] drink = 0.6 oz pur e alcohol) [facility] Utilities Answer Date Recorded In the past [...] often do you attend chur ch or muslim services? Never 05/18/2024 Do you belong to any clubs o r organizations such as synagogue groups, unions, fraternal or athletic groups, or [...] staff should administer the PHQ-9) 0 06/09/2023 [facility] - Occupational [...] any time in the past 12 m [facility], were you homeless or living in a longterm (including now)? No 05/18/2024 Personal Safety Answer Date Recorded Have you ever been in or are you currently in a harmful physical or emotional relationship or is someone making you feel afraid or unsafe? 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 Not on file [...] 06/18/2025 11:06 AM CDT Plan of Treatment Health Maintenance Due Date Last Done Comments DTaP/Tdap/Td Vaccine (1 - Tdap) 1956 Hepatitis B Screening 1962 Zoster Vaccine (1 of 2) 1994 Pneumococcal vaccine 65+ (2 of 2 - PCV) 04/08/2013 04/08/2012 Depression Screening 06/09/2024 06/09/2023, 05/27/2022, 01/16/2021, Additional history exists Well Visit 65+ 06/09/2024 06/09/2023, 04/30, 01/16/2021 Covid-19 Vaccine (2023- 5 season) 2024 03/11/2022, 08/28/2021, 01/23/2021, Additional history exists Fall Risk Assessment 05/19/2025 05/19/2024, 06/09/2023, 05/27/2022, Additional history exists Colon Cancer Screening-DNA Stool 07/21/2025 07/21/2022, 06/10/2022, 07/05/2018 Influenza Vaccine (#1) 2025 , 09/10/2021, 08/29/2021, Additional history exists Colon Cancer Screening-CT Colonography Discontinued 07/21/2022 Colon Cancer Screening-Colonoscopy Discontinued 07/21/2022 Colon Cancer Screening-FIT Discontinued 07/21, 06/10/2022, 07/05/2018 Colon Cancer Screening-Sigmoidoscopy Discontinued 07/21/2022 Medical Devices Implanted Type Area Photolithographer Device Identifier Shelf Expiration Date Model / Serial / Lot Right Total Knee Replacement Right: Knee [employer] Tibial Baseplate Knee Porous Left Fixed Keel Persona [place] Size F Titanium [id number] - [id number] Implanted:Qty: 1 on 05/18/2024 by Kike Centeno DO at [facility] Left: Knee [employer] [id number] 02/10/2034 [id number] / / [id number] [employer] Component Femoral Knee Porous Cr Standard Left Persona Pps Size 10 [place] Chromium [id number] - [id number] Implanted:Qty: 1 on 05/18/2024 by Kike Centeno DO at [facility] Left: Knee [employer] [id number] 02/01/2034 [id number] / / [id number] [employer] Persona 10mm Knee Left 8-11 E-F Insert Articular Vivacit-E [id number] - [id number] Implanted:Qty: 1 on 05/18/2024 by Kike Centeno DO at [facility] Left: Knee [employer] [id number] 12/14/2028 [id number] / / [id number] Procedures Procedure Name Priority Date/Time Associated Diagnosis Comments POCT LIPID PANEL Routine 06/18/2025 11:33 AM CDT 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 T: Report ID: [id number] Reading Location: [id number] Procedure Note Lucho Hays MD - 03/29/2025 [...] by Lucho Hays M.D. T: Report ID: [id number] Reading Location: [id number] [facility] [place] IMG XR PROCEDURES Fin al Result * Colonoscopy (07/21/2022) Anatomical Region Laterality Modality Other 07/21/2022 Historical Provider ENDOSCOPY PROCEDURES Alessia l Result from Last 3 Months or Most Recently Relevant to Health Maintenance Insurance [facility] MEDICARE MEDICARE [facility] MEDICARE SUPPLEMENT Advance Directives For more information, please contact: [phone] Documents on File Type Date Recorded Patient Superintendent Meter Tests Expl anation Power of Underwater Hunter 05/04/2024 11:30 AM * Full Code (Latest Code Status on File) Date Activated Date Inactivated Comments 05/18/2024 10:45 AM 05/19/2024 2:15 PM Care Teams Right Of Way Man Relationship Specialty Start Date End Date Woody Fry DO [address] [place] [address] PCP - General Internal Medicine 05/02/24 Aj López MD [address] [facility] [address] [place] [address] Consulting Physician Interventional Cardiology 04/19/24 Deidre Lomeli PA [address] [facility] [address] [place] [address] Orthopedic Surgery 05/18/24
--- OUTSIDE RECORDS SUMMARY | 2025-06-20 10:09 | XMS_ITS | Clinical Summary ---
Author Organization [facility] Alexis Bittar Address [address] [place] [address] Care Team Providers Care Accounting Tutor Name Role Phone Unavailable Primary Care Provider Unavailabl e Source Comments [facility],non-owned Affiliates and Associated Physician Practices is amultiple site organization consisting of ambulatory clinics and hospital sitesin [place], [place], [place] and [place]. This disclosure is being madepursuant to the Care Everywhere program and may not contain all information available regarding this patient. Last updated 18.[facility] Alexis Bittar Allergies Active Allergy Reactions Criticality Noted Date [...] 2:01 PM CDT Height 170.2 cm (5' 7) 08/31/2022 2:01 PM CDT Body Mass Index [...] 01/23/2021, 01/01/2021 DEPRESSION SCREENING 11/29/2024 INFLUENZA VACCINE (#1) 2025 , 08/29/2021, 09/21/2018, Additional history exists HEPATITIS B [...]
--- OUTSIDE RECORDS SUMMARY | 2025-06-20 10:09 | XMS_ITS | Encounter Summary ---
Author Organization [facility] Address [address] [place] [address] Care Team Providers Care Vamp Seamer Name Role Phone Woody Wu MD Primary Care Provider [phone] Reason for Referral * Surgical (Routine) - Closed Specialty Diagnoses / Procedures Referred By Yaw t Referred To Contact Diagnoses Lumbar radiculopathy Procedures Case request operating room: INJECTION EPIDURAL TRANSFORAMINAL L4-5, L5-S1 Ev Burgess NP [address] [facility] [address] [place] [address] Phone: tel: [phone] fax: Referral ID Status Reason Start Date Expiration Date Visits Re quested Visits Authorized [id number] Closed 09/15/2022 09/15/2023 1 1 Encounter Details Date Type Department Care Team (Late st Contact Info) Description 09/15/2022 Prep for Procedure [facility] Interventional Pain [place] [address] [id number] Ev Burgess NP [address] [facility] [address] [place] [phone] (Work) Social History Tobacco Use Types Packs/Day Years Used Date Smoking Tobacco: Never Smokeless Tobacco: Never Alcohol Use Standard Drinks/Week Comments Yes 0 (1 standard drink = 0.6 oz pur e alcohol) socially Sex and Gender Information Value Date Recorded Sex Assigned at Not on file Legal Sex Male 8:14 PM CDT Gender Identity Male 11/21/2021 9:19 AM ERP PROGRAMMER Sexual Orientation Choose not to disclose 2020 9:19 AM ERP PROGRAMMER COVID-19 Exposure Response Date Recorded In the [...] CDT Patricio Dimas i, RN Active * [place] Suicide Severity Rating Scale (Screener/Recent Self-Report) Question [...] unspecified documented in this encounter Care Teams Vamp Seamer Relationship Specialty Start Date End Date Woody Wu MD PCP - General FAMILY PRACTICE 06/28/20 documented as of this encounter
--- OUTSIDE RECORDS SUMMARY | 2025-06-20 10:09 | XMS_ITS | Clinical Summary ---
Author Organization [facility] Adin newby Rahat Address [address] [place] [address] Care Team Providers Care Quantitative Manager Name Role Phone Unavailable Primary Care Provider Unavailabl e Allergies Active Allergy Reactions Criticality Noted Date Comments Erythromycin Abdominal Pain Low 06/20/2025 Medications pravastatin (PRAVACHOL) 80 mg tablet 06/18/2025 Active dilTIAZem (CARDIZEM CD, CARTIA XT) 120 mg Controlled Delivery 24 hour capsule 06/18/2025 Active aspirin (ECOTRIN EC) 81 mg Tablet, Delayed Release (E.C.) Take 81 mg by mouth daily. Active ezetimibe (ZETIA) 10 mg tablet Take 10 mg by mouth daily. 12/28/2024 Active cholecalciferol, vitamin D3, 1,000 unit Take 1 Tablet by mouth daily. Active multivitamin (MULTIPLE VITAMINS ORAL) Take 1 Tablet by mouth daily. Active ascorbic acid, vitamin C, (VITAMIN C) 1,000 mg Tablet Take 1,000 mg by mouth daily. Active Active Problems No known active problems Encounters Date Type Department Care Team Description 06/20/2025 9:15 AM CDT Office Visit [facility] Oncology and Hematology - [place] [address] [facility] [address] [place] [address] Chivo Robert MD Chronic anemia (Primary Dx) from Last 3 Months Family History Medical History Relation Name Comments Heart Disease Brother 1 Heart Disease Brother 2 No Known Problems Brother 3 No Known Problems Child 1 No Known Problems Child 2 No Known Problems Child 3 Heart Disease Father Diabetes Mother Relation Name Status Comments Brother 1 Alive Brother 2 Alive Brother 3 Alive Child 1 Alive Child 2 Alive Child 3 Alive Father Mother Social History Tobacco Use Types [...] Mass Index 26.88 06/20/2025 9:27 AM CDT Plan of Treatment Upcoming Encounters Date Type Department Care Team (Late st Contact Info) Description 07/04/2025 4:30 PM CDT Telephone Check Up [facility] Oncology and Hematology - Jose [address] [facility] [address] [place] [address] Chivo Robert MD [address] [facility] [address] [place] [address] Health Maintenance Due Date Last Done Comments DTAP/TDAP/TD VACCINES (1 - Tdap) 1964 Traditional Medicare (ACO) A nnual Wellness Visit 1964 ZOSTER VACCINE (1 of 2) 1994 PNEUMOCOCCAL VACCINE 50+ YEA RS (2 of 2 - PCV) 04/08/2013 04/08/2012 RSV VACCINE (60+ or ) (1 - 1-dose 75+ series) 2019 INFLUENZA VACCINE (#1) 2025 1, 09/21/2018, 10/17/2012, Additional history exists Insurance [facility]
[2025-06-20 10:17] LABS: Hematocrit 44.2 % (42.0-52.0); Hemoglobin 13.7 g/dL (14.0-18.0); Immature Granulocyte Percent A 0.6 % (0-0.5); Lymphocytes Absolute Auto 0.88 K/mm3 (0.9-3.2); Mean Corpuscular HGB Conc 31.0 g/dl (32-36); Mean Corpuscular Hemoglobin 25.9 pg (26-34); Mean Corpuscular Volume 83.7 fl (80-100); Nucleated Red Blood Cells Absolute Auto 0.000 K/mm3 (0.0-0.012); Nucleated Red Blood Cells Perc 0.0 % (0.0-0.2); Platelet Count Result 211 k/mm3 (150-375); Red Blood Count 5.28 M/mm3 (4.6-6.20); White Blood Count 5.1 K/mm3 (4.5-10.0)
[2025-06-20 12:22] LABS: Alanine Aminotransferase 29 U/L (6-50); Albumin Level 4.3 g/dL (3.5-5.1); Alkaline Phosphatase 80 U/L (38-126); Anion Gap 8 mmol/L (4-12); Aspartate Amino Transferase 37 U/L (17-59); Bilirubin,Total 0.4 mg/dL (0.2-1.3); Blood Urea Nitrogen 17 mg/dL (9-20); Calcium 9.5 mg/dL (8.4-10.2); Carbon Dioxide 28 mmol/L (22-30); Chloride 103 mmol/L (98-107); Estimated Glomerular Filt Rate > 60; Glucose 89 mg/dL (65-110); Sodium 139 mmol/L (137-145); Total Protein 7.0 g/dL (6.3-8.2)
[2025-06-20 12:23] LABS: Iron 73 ug/dL (49-181)
[2025-06-20 12:34] LABS: Percent Iron Saturation 17 % (20-50)
[2025-06-20 12:35] LABS: Potassium 4.5 mmol/L (3.4-5.0)
[2025-06-20 13:06] LABS: Ferritin 4.25 ng/mL (11.1-264)
[2025-06-20 13:36] LABS: Vitamin B12 903.0 pg/mL (239-931)
== END 2025-06-20 10:02 | disposition home or self-care (01) ==
LOC: ANHLAB 10:04
PROVIDERS: PCP Clinical Nurse Specialist; Visit Provider Internal Medicine Hematology & Oncology
DX: D64.9 Anemia, unspecified (principal)
CPT/HCPCS: 36415; 80053; 82607; 82728; 82746; 83540; 83550; 83921; 84238; 85025

== ENCOUNTER 2025-09-25 10:15 | Outpatient (RCR) | payer MEDICARE, SELFPAY ==
--- NOTE | 2025-09-06 11:57 | OPREHPOC ---
Outpatient Therapy Plan of Care This is a Multidisciplinary Plan of Care that may contain components documented by all disciplines (PT, OT, and ST.) PT Goal 1 Goal / Goal Update 1. Patient to demonstrate independence with HEP for improved self-reliance of symptom management. Target Visit 6 PT Problem 2 PT Problem #2 Pain PT Goal 1 Goal / Goal Update 1. Patient to decrease subjective reports of pain to <3/10 for improved ADL tolerance 2. Patient to report 50% improvement in quantity and quality of sleep due to decreased L shoulder pain. Target Visit 6 PT Problem 3 PT Problem #3 Impaired Range of Motion PT Goal 1 Goal / Goal Update 1. Patient to demonstrate L shoulder strength >=4+ /5 for improved functional stability required for ADLs. Target Visit 6 PT Problem 4 PT Problem #4 Impaired Range of Motion PT Goal 1 Goal / Goal Update 1. Pt to demonstrate an increase of L shoulder abduction AROM of 145 deg to improve the ability to overhead reaching. Target Visit 6
--- NOTE | 2025-09-06 11:57 | PTOPEVAL1 ---
Assessment and note entered by Filemon Rosario PT Evaluation Information Assessment Status Evaluation Diagnosis L shoulder OA ICD-10 Condition Codes (PT) Pain in left shoulder M25.512 Onset 1 year ago Subjective Information Pt states his shoulder has hurt him for the past year and progressively gotten worse. He states certain movements get the pain levels up higher such as reaching to the side and up over head. He notes his primary concern is the L shoulder pain affects his sleep because he sleeps on the L side. Pt received an MRI 6 weeks ago and there was no RC tear, just OA and degenerative changes. Pt received injection and states it feels a little better but still bothers him daily. Reported Pain Level Pain Score 5: Self Report Assessment PT Clinical Summary Patient presents with complaints of left shoulder pain consistent with osteoarthritis and subacromial impingement. Examination reveals significant pain and palpable deficits at end- range active ROM and painful arc sign, particularly in abduction. Furthermore, strength testing demonstrates decreased scapular stabilizer and rotator cuff musculature strength, contributing to aberrant movement mechanics. These findings indicate a need for physical therapy focused on improving motor control, increasing strength, and managing pain to restore functional ROM and daily activity tolerance. Plan of Care Interventions Hot Pack/Cold Pack,Manual Therapy,Neuro Re- education,Therapeutic Activities,Therapeutic Exercise,Ultrasound,Other PT Services Indicated Yes Treatment Frequency and 1-2x per week for 6 vsits Duration These treatments will address the objective and functional deficits as defined above. The patient will be advanced safely and appropriately in order for the patient to progress towards his/her prior level of function. Additional exercises will be introduced and as well as a comprehensive home exercise program upon discharge, if needed, ?to ensure carryover of functional gains achieved in the clinic. This treatment plan has been reviewed and agreement upon by the patient.
--- NOTE | 2025-09-25 10:58 | PTOPDC ---
Assessment and note entered by Filemon Rosario PT Evaluation Information Assessment Status Discharge Diagnosis L shoulder OA ICD-10 Condition Codes (PT) Pain in left shoulder M25.512 Onset 1 year ago Subjective Information Pt states his L shoulder is feeling 80% better. He notes he has very little pain and has full ROM. Pt reports his only remaining difficulty is sleeping on his L side and pain when her over works its. Pt states [facility] and continues with his physical therapy HEP. Reported Pain Level Pain Score 0: Self Report Assessment PT Clinical Summary Patient's L shoulder has improved overall as evidenced by advancements in symptoms, mobility, strength, and overall functional use of the extremity. Patient has met therapy goals and is pleased with progress made towards the remaining goals. Patient to discharge from physical therapy this date and continue with updated home exercise program as instructed. Patient to contact physical therapist or primary care provider if questions or concerns arise. Plan of Care PT Services Indicated No
== END 2025-09-26 10:08 | disposition home or self-care (01) ==
LOC: ANHGOSHPT 10:15
PROVIDERS: PCP Clinical Nurse Specialist; Visit Provider Physician Assistant
DX: M19.012 Primary osteoarthritis, left shoulder (principal)
CPT/HCPCS: 97110; 97112; 97140; 97161; 97530

== ENCOUNTER 2025-10-11 10:59 | Outpatient (CLI) | payer MEDICARE, SELFPAY ==
--- OUTSIDE RECORDS SUMMARY | 2025-10-11 12:05 | XMS_ITS | Encounter Summary ---
Author Organization [facility] Address [address] [place] [address] Care Team Providers Care Die Equipment Operator Name Role Phone Woody Wu MD Primary Care Provider [phone] Reason for Referral * Surgical (Routine) - Closed Specialty Diagnoses / Procedures Referred By Yaw t Referred To Contact Diagnoses Lumbar radiculopathy Procedures Case request operating room: INJECTION EPIDURAL TRANSFORAMINAL L4-5, L5-S1 Ev Burgess NP [address] [facility] [address] [place] [address] Phone: tel: [phone] fax: Referral ID Status Reason Start Date Expiration Date Visits Re quested Visits Authorized [id number] Closed 09/15/2022 09/15/2023 1 1 Encounter Details Date Type Department Care Team (Late st Contact Info) Description 09/15/2022 Prep for Procedure [facility] [place] [address] [id number] Ev Burgess NP [address] [facility] [address] [place] [phone] (Work) Social History Tobacco Use Types Packs/Day Years Used Date Smoking Tobacco: Never Smokeless Tobacco: Never Alcohol Use Standard Drinks/Week Comments Yes 0 (1 standard drink = 0.6 oz pur e alcohol) socially Sex and Gender Information Value Date Recorded Sex Assigned at Not on file Legal Sex Male 8:14 PM CDT Gender Identity Male 11/21/2021 9:19 AM 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
--- OUTSIDE RECORDS SUMMARY | 2025-10-11 12:05 | XMS_ITS | Clinical Summary ---
Author Organization [facility] Address [address] [facility] [place] [address] Care Team Providers Care Bladder Cleaner Name Role Phone SheelafarheenWoody freeman Delta Primary Care Provider Allergies Active Allergy Reactions Criticality Noted Date [...] Encounters Date Type Department Care Team Description 09/19/2025 External Device Data STL ABSTRACTION Provider, Abstract 09/18/2025 External Device Data STL ABSTRACTION Provider, Abstract 09/04/2025 External Device Data STL ABSTRACTION Provider, Abstract 08/14/2025 External Device Data STL ABSTRACTION Provider, Abstract 08/14/2025 External Device Data STL ABSTRACTION Provider, Abstract 08/01/2025 External Device Data STL ABSTRACTION Provider, Abstract 07/18/2025 External Device Data ST[place] ABSTRACTION Provider, Abstract 07/17/2025 External Device Data STL ABSTRACTION Provider, Abstract from Last 3 Months Family History Medical [...] Care Team (Late st Contact Info) Description 01/09/2026 10:15 AM LEAD TEACHER Office Visit [facility] Oncology and Hematology - [place] [address] [facility] [address] [place] [address] Chivo Robert MD [address] [facility] [address] [place] [address] Health Maintenance Due Date Last Done Comments DTAP/TDAP/TD VACCINES (1 - Tdap) 1963 ZOSTER VACCINE (1 of 2) 1994 PNEUMOCOCCAL VACCINE 50+ YEA RS (2 of 2 - PCV) 04/08/2013 04/08/2012 RSV VACCINE (60+ or ) (1 - 1-dose 75+ series) 2019 INFLUENZA VACCINE (#1) 2025 1, 09/21/2018, 10/17/2012, Additional history exists Insurance MEDICARE PART A AND B [facility] Care Teams Bladder Cleaner Relationship Specialty Start Date End Date Woody Fry DO [address] [facility] [address] [place] [address] PCP - General Internal Medicine 07/04/25
--- OUTSIDE RECORDS SUMMARY | 2025-10-11 12:05 | XMS_ITS | Encounter Summary ---
Author Organization [facility] Address [address] [facility] [place] [address] Care Team Providers Care Risk Investigator Name Role Phone Unavailable Primary Care Provider Unavailabl e Encounter Details Date Type Department Care Team (Late st Contact Info) Description 06/27/2021 Lab Requisition [facility] [address] [place] [address] Alex Mercedes MD [address] [place], [place] [id number] Social History Tobacco Use Types Packs/Day Years [...] AM CDT) Case Report Dermatopathology Report Case: [id number] Authorizing Provider: Alex Mercedes MD Collected: 06/25/2021 12:00 AM Ordering Location: [facility] Received: 06/27/2021 09:38 [...] characteristic determined by the Dermatopathology Laboratory at [facility], directed by Dr. Rach Grissom. These tests need not be, and therefore are not, approved by the [place] Food and Drug Administration. The tests are used for clinical purposes. Billing Codes Specimen Charges Stain Charges 20021 1 27118 1 1 6:42 PM CDT DERMATOPATHOLOGY LABORATORY Embedded Images 6:42 PM CDT DERMATOPATHOLOGY LABORATORY Pathology/Cytolog y TISSUE SPECIMEN FROM SKIN / Unknown 06/25/2021 06/27/2021 9:38 AM CDT us Alex Mercedes MD LAB - PATHOLOGY/CYTOLOGY ORDERAB LES Final Result DERMATOPATHOLOGY LABORATORY [facility] - Department of Dermatology [address], [address] [phone] documented in this encounter Visit Diagnoses Not on filedocumented in this encounter
--- OUTSIDE RECORDS SUMMARY | 2025-10-11 12:05 | XMS_ITS | Encounter Summary ---
Author Organization [facility] Care Team Providers Care Director Digital Analytics Name Role Phone Woody Wu MD Primary Care Provider [phone] Marquita Valentino LPN Unavailable [phone] Aj López MD Unavailable [phone] No, Physician Primary Care Provider [phone] Woody Fry DO Primary Care Provider [phone] Deidre Lomeli Unavailable [phone] Encounter Details Date Type Department Care Team (Latest Contact Info) Description 07/11/2018 Orders Only [facility] ProviderAyaz MD [address] [place] [address] Social History Tobacco Use Types Packs/Day Years Used Date Smoking Tobacco: Never Smokeless Tobacco: Never Alcohol Use Standard Drinks/Week Comments Yes 0 (1 standard drink = 0.6 oz pur e alcohol) Sex and Gender Information Value Date Recorded Sex Assigned at Not on file Legal Sex Male 3:45 PM EMBALMER/FUNERAL DIRECTOR Gender Identity Not on file Sexual Orientation [...] on filedocumented in this encounter Care Teams Director Digital Analytics Relationship Specialty Start Date End Date Woody Wu MD PCP - General 02/26/17 04/18/24 No, Physician PCP - General 04/20/24 05/01/24 Woody Fry DO PCP - General Internal Medicine 05/02/24 Marquita Valentino LPN Business Control Specialist 11/01/19 11/01/19 Aj López MD [address] [facility] [address] [place] [address] Consulting Physician Interventional Cardiology 04/19/24 Deidre Lomeli PA [address] [facility] [address] [place] [address] [place] [address] Orthopedic Surgery 05/18/24 documented as of this encounter
--- OUTSIDE RECORDS SUMMARY | 2025-10-11 12:05 | XMS_ITS | Clinical Summary ---
Author Organization [facility] Address [address] [place] [address] Care Team Providers Care Microbiology Lab Analyst Name Role Phone Aj López MD Unavailable [phone] Woody Fry DO Primary Care Provider [phone] Deidre Lomeli Unavailable [phone] Allergies Active Allergy Reactions Criticality Noted Date Comments Erythromycin Stomach upset,Nausea And Vomiting Low 07/07/2021 Patient states upset stomach. Mold Unknown 06/11/2025 Pollen Extracts Unknown 06/08/2025 Medications ascorbic acid, vitamin C, (VITAMIN C) [...] Prevention Take 1 tablet by mouth Active coenzyme Q10 30 mg capsule Take 1 capsule (30 mg total) by mouth daily Active finasteride (PROPECIA) 1 mg tablet Take 1 tablet (1 mg total) by mouth 5 Active dilTIAZem CD 120 mg 24 hr capsule TAKE 1 CAPSULE BY MOUTH EVERY DAY 90 capsule 3 Active pravastatin (PRAVACHOL) 80 mg tablet TAKE 1 TABLET BY MOUTH EVERY DAY 90 tablet 3 5 Active Active Problems Problem Noted Date Diagnosed Date Internal derangement of left shoulder 07/03/2025 Left shoulder pain 03/29/2025 S/P TKR (total knee replacement) using cement, l eft 05/18/2024 Assessment & Plan (05/31/2024 1:49 PM CDT): Patient is doing well overall. X-rays were reviewed with the patient today in clinic and demonstrate hardware in good alignment without apparent complication. Patient will begin outpatient physical therapy - he was given a PT script today to bring into [place] outpatient physical therapy as we are unable [...] Assessment & Plan (10/04/2019 1:26 PM DIRECTOR TREASURER): His lipid profile today demonstrates a cholesterol [...] Assessment & Plan (10/05/2018 2:30 PM DIRECTOR TREASURER): . 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 2.Global left ventricular [...] Encounters Date Type Department Care Team Description 08/09/2025 10:15 AM CDT Office Visit [facility] Orthopedics and Sports Medicine [facility] [facility] [address] [place] [address] Lm Gary PA Primary osteoarthritis of left shoulder (Primary Dx); Left shoulder pain, unspecified chronicity 07/25/2025 2:58 PM CDT - 07/25/2025 11:59 PM CDT Hospital Encounter [facility] MRI [facility] [place] [address] Primary osteoarthritis of left shoulder Discharge Disposition: Discharge to home or self [...] REMOVAL 07/16/2021 TOTAL KNEE ARTHROPLASTY 07/22/[address] [facility] [address] [facility] Bustam[facility] EYE SURGERY Right [...] drink = 0.6 oz pur e alcohol) [facility] Utilities Answer Date Recorded In the past 12 months has e [employer], gas, oil, or water [employer] threatened to shut off services in your home? No 05/18/2024 Social Connection and Isolation Panel Answer Date Recorded In a typical week, how many times do you talk on the phone with family, friends, or neighbors? More than three times a week 05/18/2024 How often do you get togethe r with friends or relatives? More than three times a week 05/18/2024 How often do you attend chur ch or hindu services? Never 05/18/2024 Do you belong to any clubs o r organizations such as yarsanism groups, unions, fraternal or athletic groups, or [...] staff should administer the PHQ-9) 0 06/09/2023 [facility] - Occupational Stress Questionnaire Answer Date Recorded [...] any time in the past 12 m [facility], were you homeless or living in a fpc (including now)? No 05/18/2024 Personal Safety Answer Date Recorded Have you ever been in or are you currently in a harmful physical or emotional relationship or is someone making you feel afraid or unsafe? 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 Not on file Not on file Last Filed Vital Signs Vital Sign Reading Time Taken Comments Blood Pressure 130/76 06/18/2025 11:06 AM CDT Pulse 76 06/18/2025 11:06 AM CDT Temperature 36.6 C (97.9 F) 05/19/2024 8:00 AM CDT Respiratory Rate 16 05/19/2024 8:00 AM CDT Oxygen Saturation 99% 06/18/2025 11: 06 AM CDT Inhaled Oxygen Concentration - - Weight 77.1 kg (169 lb 15.6 oz) 07/25/2025 4:11 PM CDT Height 170.2 cm (5' 7) 07/25/2025 4:11 PM CDT Body Mass Index 26.62 07/25/2025 4:11 PM CDT Plan of Treatment Health Maintenance Due Date Last Done Comments DTaP/Tdap/Td Vaccine (1 - Tdap) 1956 Hepatitis B Screening 1962 Zoster Vaccine (1 of 2) 1994 Pneumococcal vaccine 65+ (2 of 2 - PCV) 04/08/2013 04/08/2012 Depression Screening 06/09/2024 06/09/2023, 05/27/2022, 01/16/2021, Additional history exists Well Visit 65+ 06/09/2024 06/09/2023, 04/30, 01/16/2021 Fall Risk Assessment 05/19/2025 05/19/2024, 06/09/2023, 05/27/2022, Additional history exists Colon Cancer Screening-DNA Stool 07/21/2025 07/21/2022, 06/10/2022, 07/05/2018 Covid-19 Vaccine (2024-12 6 season) 2025 03/11/2022, 08/28/2021, 01/23/2021, Additional history exists Influenza Vaccine (#1) 2025 , 09/10/2021, 08/29/2021, Additional history exists Colon Cancer Screening-CT Colonography Discontinued 07/21/2022 Colon Cancer Screening-Colonoscopy Discontinued 07/21/2022 Colon Cancer Screening-FIT Discontinued 07/21, 06/10/2022, 07/05/2018 Colon Cancer Screening-Sigmoidoscopy Discontinued 07/21/2022 Medical Devices Implanted Type Area Senior Account Manager Device Identifier Shelf Expiration Date Model / Serial / Lot Right Total Knee Replacement Right: Knee [employer] Tibial Baseplate Knee Porous Left Fixed Keel Persona Osseoti Size F Titanium [id number] - [id number] Implanted:Qty: 1 on 05/18/2024 by Kike Centeno DO at [facility] Left: Knee [employer] [id number] 02/10/2034 [id number] / / [id number] [employer] Component Femoral Knee Porous Cr Standard Left Persona Pps Size 10 Mineral Chromium [id number] - [id number] Implanted:Qty: 1 on 05/18/2024 by Kike Centeno DO at [facility] Left: Knee [employer] [id number] 02/01/2034 [id number] / / [id number] [employer] Persona 10mm Knee Left 8-11 E-F Insert Articular Vivacit-E [id number] - [id number] Implanted:Qty: 1 on 05/18/2024 by Kike Centeno DO at [facility] Left: Knee [employer] [id number] 12/14/2028 [id number] / / [id number] Procedures Procedure Name Priority Date/Time Associated Diagnosis Comments [place] ARTHROCENTESIS ASPIR&/INJ MAJOR JT/BURSA W/O US Routine 08/09/2025 10:15 AM CDT Primary osteoarthritis of left shoulder Left shoulder pain, unspecified chronicity MRI SHOULDER LEFT WO CONTRAST Schedule Routine, Read Routine (OP Routine) 07/25/2025 4:50 PM CDT Primary osteoarthritis of left shoulder COLONOSCOPY Routine 07/21/2022 from Last 3 Months or Most Recently Relevant to Health Maintenance Results * NJ ARTHROCENTESIS ASPIR&/INJ MAJOR JT/BURSA W/O US (08/09/2025 10:15 AM CDT) Narrative Panfilo Rolle MD - 08/09/2025 10:15 AM CDT Panfilo Rolle MD 08/09/2025 4:22 PM Large Joint (Hip, Knee, Shoulder) Injection: [...] lidocaine 10 mg/mL (1 %); 40 mg methylPREDNISolone acetate 40 mg/mL Patient tolerance: Patient tolerated the procedure well with no immediate complications us Lm [facility] IN CLINIC/BEDSIDE ORD ERABLES Final Result * MRI Shoulder Left WO Contrast (07/25/2025 4:50 PM CDT) Anatomical Region Laterality Modality Upper Extremities Left Magnetic Reson ance 07/25/2025 5:16 PM CDT Narrative 07/25/2025 5:17 PM CDT EXAM DESCRIPTION: MRI SHOULDER LEFT WO CONTRAST REASON FOR STUDY: PAIN No surgery, no injury; LT shoulder pain x 2-3 months TECHNIQUE: Multiplanar, multisequence MRI of the left shoulder was performed without contrast. COMPARISON: None FINDINGS: Rotator Cuff: There is mild supraspinatus tendinosis without discrete tearing. There is mild infraspinatus tendinosis without discrete tearing. Teres minor is intact. Intra-articular biceps is within normal limits. The subscapularis is intact. No muscle atrophy or edema. Biceps Tendon: The long head of the biceps tendon is located within the bicipital groove, without tear. Labrum: No tear is identified. Acromion and AC Joint: The coracoacromial and coracoclavicular ligaments are intact. There is mild acromioclavicular osteoarthritis. Type 2 acromion. Glenohumeral Articulation: No subluxation. No chondromalacia. Bones: No fracture. Joint and bursae: No joint effusion or bursal fluid. No loose bodies. Soft Tissues: The scapular notch, and quadrilateral space are unremarkable. There is no axillary lymphadenopathy. IMPRESSION: 1. Supraspinatus and infraspinatus mild tendinosis without discrete tearing. 2. Acromioclavicular articulation mild osteoarthritis. THIS IS AN ELECTRONICALLY VERIFIED FINAL REPORT 07/25/2025 5:17 PM - Electronically signed by Leonides QUIJANO T: Report ID: [id number] Reading Location: [id number] Procedure Note Leonides Draper MD - 07/25/2025 EXAM DESCRIPTION: MRI SHOULDER LEFT WO CONTRAST REASON FOR STUDY: PAIN No surgery, no injury; LT shoulder pain x 2-3 months TECHNIQUE: Multiplanar, multisequence MRI of the left shoulder wasperformed without contrast. COMPARISON: None FINDINGS: Rotator Cuff: There is mild supraspinatus tendinosis without discrete tearing. There is mild infraspinatus tendinosis without discrete tearing. Teres minor is intact. Intra-articular biceps is within normal limits. The subscapularis is intact. No muscle atrophy or edema. Biceps Tendon: The long head of the biceps tendon is located within the bicipital groove, without tear. Labrum: No tear is identified. Acromion and AC Joint: The coracoacromial and coracoclavicular ligamentsare intact. There is mild acromioclavicular osteoarthritis. Type 2acromion. Glenohumeral Articulation: No subluxation. No chondromalacia. Bones: No fracture. Joint and bursae: No joint effusion or bursal fluid. No loose bodies. Soft Tissues: The scapular notch, and quadrilateral space areunremarkable. There is no axillary lymphadenopathy. IMPRESSION: 1. Supraspinatus and infraspinatus mild tendinosis without discretetearing. 2. Acromioclavicular articulation mild osteoarthritis. THIS IS AN ELECTRONICALLY VERIFIED FINAL REPORT 07/25/2025 5:17 PM - Electronically signed by Leonides QUIJANO T: Report ID: [id number] Reading Location: [id number] Lm [facility] IMRic MRI PROCEDURES Fi nal Result * Colonoscopy (07/21/2022) Anatomical Region Laterality Modality Other 07/21/2022 Historical Provider ENDOSCOPY PROCEDURES Alessia l Result from Last 3 Months or Most Recently Relevant to Health Maintenance Insurance [facility] MEDICARE MEDICARE BLUE CROSS MEDICARE SUPPLEMENT Advance Directives For more information, please contact: [phone] Documents on File Type Date Recorded 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 Expl 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 Power of Switch Technician 05/04/2024 11:30 AM * Full Code (Latest Code Status on File) Date Activated Date Inactivated Comments 05/18/2024 10:45 AM 05/19/2024 2:15 PM Care Teams Microbiology Lab Analyst Relationship Specialty Start Date End Date Woody Fry DO [address] [place] [address] PCP - General Internal Medicine 05/02/24 Aj López MD [address] [facility] [address] [place] [address] Consulting Physician Interventional Cardiology 04/19/24 Deidre Lomeli PA [address] [facility] [address] [place] [address] [place] [address] Orthopedic Surgery 05/18/24
--- OUTSIDE RECORDS SUMMARY | 2025-10-11 12:05 | XMS_ITS | Clinical Summary ---
Author Organization [facility] Address [address] [place] [address] Care Team Providers Care Stone Sawyer Name Role Phone Unavailable Primary Care Provider Unavailabl e Source Comments [facility],non-owned Affiliates and Associated Physician Practices is amultiple site organization consisting of ambulatory clinics and hospital sitesin [place], [place], [place] and [place]. This disclosure is being madepursuant to the Care Everywhere program and may not contain all information available regarding this patient. Last updated 18.[facility] Allergies Active Allergy Reactions Criticality Noted Date [...] yrs (1 - 1-dose 75+ series) 2019 DEPRESSION SCREENING 11/29/2024 COVID-19 VACCINE ( season) 2025 09/10/2022, 03/11/2022, 08/28/2021, Additional history exists INFLUENZA VACCINE (#1) 2025 , 08/29/2021, 09/21/2018, [...] MEDICARE ANTHEM MEDICARE MEDICARE SUPPLEMENT PA[employer] [facility] Address: [address] [facility] [place] [address]
--- OUTSIDE RECORDS SUMMARY | 2025-10-11 12:05 | XMS_ITS | Clinical Summary ---
Author Organization [facility] Address [facility] [place] [address] Care Team Providers Care Machine Stripper Cutter Name Role Phone Woody Wu MD Primary Care Provider [phone] Allergies No known active allergies Medications pravastatin [...] 1,000 mg by mouth daily. Active Glucos-Chondroi s-Molncl-Oltm (GLUCOSAMINE CHONDROIT-COLLA GEN) Cap Take 1 tablet by mouth 2 (two) times daily. Active HYDROcodone-saima taminophen (NORCO) 5-325 MG tablet Take 1 tablet by mouth every 6 (six) hours as needed. 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 Sexual Orientation Choose not to disclose 2020 9:19 AM BUSINESS SERVICES CLERK Last Filed Vital Signs Vital Sign Reading [...] Done Comments DTaP, Tdap and Td Vaccines (1 - Tdap) 1963 Zoster Vaccines (1 of 2) 1994 Annual Medicare Wellness Visit 2009 Pneumococcal Vaccine: 50+ Years (2 of 2 - PCV) 04/08/2013 04/08/2012 RSV Immunization or 60+ Years (1 - 1-dose 75+ series) 2019 PHQ-2 (Physician [place]) 11/29/2024 COVID-19 Vaccine (3 - season) 2025 01/23/2021, 01/01/2021 Influenza Adult (#1) 2025 08/29/2022, 08/29/2021, 09/21/2018, Additional history exists Hepatitis A Vaccines Aged Out No long er eligible based on patient's age to complete this topic Meningococcal B Vaccine Aged Out No l onger eligible based on patient's age to complete this topic Meningococcal Vaccine Aged Out No cady anai eligible based on patient's age to complete this topic RSV Immunizations Under 20 Months Aged Out No longer eligible based on patient's age to complete this topic Insurance COMBINED INSURANCE MEDICARE [facility] Care Teams Machine Stripper Cutter Relationship Specialty Start Date End Date Woody Wu MD PCP - General FAMILY PRACTICE 06/28/20
--- OUTSIDE RECORDS SUMMARY | 2025-10-11 12:05 | XMS_ITS | Encounter Summary ---
Author Organization [facility] Care Team Providers Care Farm Supervisor Name Role Phone Woody Wu MD Primary Care Provider [phone] Marquita Valentino LPN Unavailable [phone] Aj López MD Unavailable [phone] No, Physician Primary Care Provider [phone] Woody Fry DO Primary Care Provider [phone] Deidre Lomeli Unavailable [phone] Encounter Details Date Type Department Care Team (Latest Contact Info) Description 06/24/2018 Orders Only [facility] CLINCONV ProviderAyaz MD [address] [place] [id number] Social History Tobacco Use Types Packs/Day Years Used Date Smoking Tobacco: Never Smokeless Tobacco: Never Alcohol Use Standard Drinks/Week Comments Yes 0 (1 standard drink = 0.6 oz pur e alcohol) Sex and Gender Information Value Date Recorded Sex Assigned at Not on file 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 Gender Identity Not on file Sexual Orientation [...] on filedocumented in this encounter Care Teams Farm Supervisor Relationship Specialty Start Date End Date Woody Wu MD PCP - General 02/26/17 04/18/24 No, Physician PCP - General 04/20/24 05/01/24 Woody Fry DO PCP - General Internal Medicine 05/02/24 Marquita Valentino LPN [facility] [place] 11/01/19 11/01/19 Aj López MD [address] [facility] [address] [place] [address] Consulting Physician Interventional Cardiology 04/19/24 Deidre Lomeli PA [address] [place] [address] [place] [id number] Orthopedic Surgery 05/18/24 documented as of this encounter
[2025-10-11 13:02] LABS: Hematocrit 45.1 % (42.0-52.0); Hemoglobin 13.9 g/dL (14.0-18.0); Immature Granulocyte Percent A 0.4 % (0-0.5); Lymphocytes Absolute Auto 0.99 K/mm3 (0.9-3.2); Mean Corpuscular HGB Conc 30.8 g/dl (32-36); Mean Corpuscular Hemoglobin 27.3 pg (26-34); Mean Corpuscular Volume 88.6 fl (80-100); Nucleated Red Blood Cells Absolute Auto 0.000 K/mm3 (0.0-0.012); Nucleated Red Blood Cells Perc 0.0 % (0.0-0.2); Platelet Count Result 204 k/mm3 (150-375); Red Blood Count 5.09 M/mm3 (4.6-6.20); White Blood Count 4.6 K/mm3 (4.5-10.0)
[2025-10-11 13:06] LABS: Iron 131 ug/dL (49-181)
[2025-10-11 13:16] LABS: Percent Iron Saturation 30 % (20-50)
[2025-10-11 13:18] LABS: Alanine Aminotransferase 35 U/L (6-50); Albumin Level 4.6 g/dL (3.5-5.1); Alkaline Phosphatase 73 U/L (38-126); Anion Gap 7 mmol/L (4-12); Aspartate Amino Transferase 44 U/L (17-59); Bilirubin,Total 0.6 mg/dL (0.2-1.3); Blood Urea Nitrogen 23 mg/dL (9-20); Calcium 9.3 mg/dL (8.4-10.2); Carbon Dioxide 28 mmol/L (22-30); Chloride 103 mmol/L (98-107); Cholesterol 147 mg/dL (0-200); Estimated Glomerular Filt Rate > 60; Glucose 77 mg/dL (65-110); HDL Direct 54 mg/dL; Potassium 4.3 mmol/L (3.4-5.0); Sodium 138 mmol/L (137-145); Total Protein 7.1 g/dL (6.3-8.2); Triglycerides 147 mg/dL (<150)
[2025-10-11 13:29] LABS: Transferrin 367 mg/dL (206-381)
[2025-10-11 13:53] LABS: Ferritin 4.83 ng/mL (11.1-264)
[2025-10-11 13:55] LABS: Prostate Specific Antigen 1.6 ng/mL (< OR = 4.0)
[2025-10-11 15:04] LABS: Vitamin B12 783.0 pg/mL (239-931)
[2025-10-12 10:26] LABS: Thyroid Stimulating Hormone 6.680 uIU/mL (0.465-4.680)
[2025-10-14 22:07] LABS: Free Testosterone (Direct) 4.7 pg/mL (6.6-18.1)
== END 2025-10-11 11:00 | disposition home or self-care (01) ==
LOC: ANHGOSHLAB 11:01
DX: D64.9 Anemia, unspecified (principal); R53.83 Other fatigue; E78.5 Hyperlipidemia, unspecified; Z13.228 Encounter for screening for other metabolic disorders; R35.1 Nocturia; N40.1 Benign prostatic hyperplasia with lower urinary tract symptoms; E55.9 Vitamin D deficiency, unspecified
CPT/HCPCS: 36415; 80053; 80061; 82306; 82607; 82728; 82746; 83540; 83550; 84153; 84402; 84403; 84443; 84466; 85025; 86376